=== PATIENT | female | born 1955 | race Caucasian/White ===

== ENCOUNTER → 2016-04-16 | Outpatient (REF) | payer OTHER | END | disposition home or self-care (01) | LOC: M LAB REF 12:24 | PROVIDERS: ATTEND Family Medicine | DX: M05.40 Rheumatoid myopathy with rheumatoid arthritis of unspecified site (principal) ==

== ENCOUNTER → 2016-06-20 | Outpatient (REF) | payer OTHER ==
[~2016-06-20] MED LIST: ASPI81TA85 PO; CETI10TA PO; CIPR500T89 PO; EPIP0.3I2; FISH1000 PO; FLAG500T PO; GLUC1CAP10 PO; HYDR200T3; HYDR25OIN; IBUP80TA; MULT1TAB8 PO; PENC1CR; Tumeric
== END ==
LOC: M LAB REF 11:51
PROVIDERS: ATTEND Physician Assistant
DX: R30.0 Dysuria (principal)

== ENCOUNTER 2016-06-21 19:25 | Emergency (ER) | payer OTHER ==
[~2016-06-21] VITALS: Ht 160 cm; Wt 93.0 kg
[2016-06-21] MEDS ORDERED: HYDR200T3 (19:45)
[2016-06-21] MEDS ORDERED: ASPI81TA85 PO (19:45)
[2016-06-21] MEDS ORDERED: EPIP0.3I2 (19:45)
[2016-06-21] MEDS ORDERED: IBUP80TA (19:45)
[2016-06-21] MEDS ORDERED: HYDR25OIN (19:45)
[2016-06-21] MEDS ORDERED: PENC1CR (19:45)
[2016-06-21] MEDS ORDERED: MULT1TAB8 PO (19:49)
[2016-06-21] MEDS ORDERED: CETI10TA PO (19:49)
[2016-06-21] MEDS ORDERED: GLUC1CAP10 PO (19:49)
[2016-06-21] MEDS ORDERED: FISH1000 PO (19:49)
[2016-06-21] MEDS ORDERED: Tumeric (19:53)
[2016-06-21] MEDS ORDERED: METAL LOCK LOOP XX ONE (20:17)
[2016-06-21 23:02] LABS: BASO % 0.4 % (0.0-1.0); EOS # 0.2 K/mm3 (0.0-0.50); EOS % 2.1 % (0.0-3.0); LARGE UNSTAINED CELL # 0.2 K/mm3 (0.0-0.4); LARGE UNSTAINED CELL % 1.9 % (0.0-4.0); LYMPH # 2.1 K/mm3 (1.5-4.5); LYMPH % 21.1 % (24.0-44.0); MEAN CORPUSCULAR HEMOGLOBIN 31.6 pg (27.0-33.0); MEAN CORPUSCULAR HGB CONC 34.2 g/dl (32.0-36.5); MEAN CORPUSCULAR VOLUME 92.4 fl (80.0-96.0); MONO # 0.4 K/mm3 (0.0-0.8); MONO % 4.4 % (0.0-5.0); NEUTROPHILS # 6.3 K/mm3 (1.8-7.7); NEUTROPHILS % 70.1 % (36.0-66.0); PLATELET COUNT, AUTOMATED 173 k/mm3 (150-450); RED CELL DISTRIBUTION WIDTH 12.6 % (11.5-14.5)
[2016-06-21 23:13] LABS: ALBUMIN 3.7 GM/DL (3.2-5.2); ALBUMIN/GLOBULIN RATIO 1.03 (1.00-1.93); ALKALINE PHOSPHATASE 87 U/L (45-117); ALT/SGPT 29 U/L (12-78); ANION GAP 6 MEQ/L (8-16); AST/SGOT 15 U/L (15-37); BILIRUBIN,TOTAL 0.4 MG/DL (0.2-1.0); BLOOD UREA NITROGEN 15 MG/DL (7-18); CALCIUM LEVEL 8.7 MG/DL (8.5-10.1); CARBON DIOXIDE LEVEL 34 MEQ/L (21-32); CHLORIDE LEVEL 104 MEQ/L (98-107); GLOMERULAR FILTRATION RATE > 60.0 (>51); GLUCOSE, FASTING 110 MG/DL (70-105); SODIUM LEVEL 144 MEQ/L (136-145); TOTAL PROTEIN 7.3 GM/DL (6.4-8.2)
[2016-06-21] MEDS ORDERED: ISOVUE-370 76% 100ML VIAL (Q9967) As Ordered ONE (23:53)
--- NOTE | 2016-06-22 00:10 | REPUSA ---
CLINICAL HISTORY: Pain. TECHNIQUE: Realtime sonographic images were obtained in multiple projections. COMMENTS: Uterus measures 6.2 (CC) x 3.3 (AP) x 5.0 (Transverse) cm with endometrial thickness of 5.2 mm. Mult iple exophytic fibroids noted, largest on right posterior and inferior aspect measuring 5.7 x 3.2 x 6 .2 cm. Endometrial fibroid measures 1.6 x 1.6 x 1.9 cm. Ovaries are not visualized. IMPRESSION: 1. Multiple exophytic fibroids noted, largest on right posterior and inferior aspect measuring 5.7 x 3.2 x 6.2 cm. 2. Endometrial fibroid measures 1.6 x 1.6 x 1.9 cm. Thank you for your kind referral of this patient. We appreciate the opportunity to participate in th is patient's care.
--- NOTE | 2016-06-22 01:50 | REPUSA ---
CLINICAL HISTORY: Abdominal pain. TECHNIQUE: Multiple axial, sagittal and coronal CT images were obtained through the abdomen and pelvi s after administration of intravenous contrast material. COMMENTS: The liver is of uniform attenuation without mass or defect. There is no intra or extrahepatic biliary ductal dilatation. The spleen is normal. The gallbladder contains multiple stones. The pancreas is o f normal contour and attenuation characteristics. There is no evidence of adrenal mass. Both kidneys demonstrate prompt and equal nephrograms. The kidneys are normal in size, shape and conf iguration. There is no evidence of renal or ureteral mass. No renal or ureteral calculi are identifie d. There is no hydroureter or hydronephrosis. No evidence for appendicitis. Scattred sigmoid divertculosis is seen. Adjacent inflammatory strand ing is seen compatible with acute diverticulitis. No evidence for small or large bowel obstruction. There is no evidence of abdominal ascites or lymphadenopathy. There is no evidence of intrinsic or extrinsic bladder mass. There is no pelvic ascites or lymphadeno darell.i Fibroid uterus is seen. Images of the lung bases show no evidence of pleural or parenchymal mass. There are no pleural effusi ons. The bony structures are free of lytic or blastic lesions. Multilevel degenerative changes are seen in volving the thoracolumbar spine. Scattered calcifications are seen involving the aorta and major bran ches compatible with atherosclerosis. IMPRESSION: Acute sigmoid diverticulitis. Gallstones. Fibroid uterus. Thank you for your kind referral of this patient.
[2016-06-22] MEDS ORDERED: CIPR500T89 PO (02:00)
[2016-06-22] MEDS ORDERED: FLAG500T PO ×2 (02:01→02:02)
[2016-06-22] MEDS: CIPROFLOXACIN 500 MG TAB PO ONE (02:02)
[2016-06-22] MEDS: metroNIDAZOLE (FLAGYL) 500 MG TAB PO ONE (02:15)
[2016-06-22 02:27] VITALS: BP 127/83
[2016-06-25 09:39] LABS: CA 125 7.6 U/ML (<30.2)
== END 2016-06-22 02:29 | disposition home or self-care (01) ==
LOC: M ED 20:48
DX: K57.92 Diverticulitis of intestine, part unspecified, without perforation or abscess without bleeding (principal); D25.9 Leiomyoma of uterus, unspecified
CPT/HCPCS: 74177; 76856; 80053; 83690; 85025; 86304; 99283; Q9967

== ENCOUNTER → 2016-07-12 | Outpatient (CLI) | payer OTHER | LOC: M WUC 10:14 | PROVIDERS: ATTEND Allergy & Immunology | DX: J30.89 Other allergic rhinitis (principal); J30.1 Allergic rhinitis due to pollen; H10.45 Other chronic allergic conjunctivitis; R05 Cough; J30.81 Allergic rhinitis due to animal (cat) (dog) hair and dander; J30.2 Other seasonal allergic rhinitis ==

== ENCOUNTER → 2016-10-17 | Outpatient (REF) | payer OTHER ==
[~2016-10-17] MED LIST changes: +CIPR-249 PO; -CIPR500T89 PO
== END ==
LOC: M LAB REF 13:14
PROVIDERS: ATTEND Family Medicine
DX: Z51.81 Encounter for therapeutic drug level monitoring (principal); Z79.899 Other long term (current) drug therapy

== ENCOUNTER → 2016-10-31 | Outpatient (CLI) | payer OTHER ==
[2016-10-31 16:55] LABS: BASO % 0.9 % (0.0-1.0); EOS # 0.2 K/mm3 (0.0-0.50); EOS % 3.6 % (0.0-3.0); LYMPH # 1.9 K/mm3 (1.5-4.5); LYMPH % 32.6 % (24.0-44.0); MEAN CORPUSCULAR HEMOGLOBIN 31.7 pg (27.0-33.0); MEAN CORPUSCULAR HGB CONC 34.6 g/dl (32.0-36.5); MEAN CORPUSCULAR VOLUME 91.9 fl (80.0-96.0); MONO # 0.3 K/mm3 (0.0-0.8); NEUTROPHILS # 3.1 K/mm3 (1.8-7.7); RED CELL DISTRIBUTION WIDTH 12.8 % (11.5-14.5); WHITE BLOOD COUNT 5.4 K/mm3 (4.0-10.0)
== END ==
LOC: M WUC 14:09
PROVIDERS: ATTEND Internal Medicine Rheumatology
DX: Z51.81 Encounter for therapeutic drug level monitoring (principal); Z79.899 Other long term (current) drug therapy

== ENCOUNTER → 2017-04-23 | Outpatient (REF) | payer OTHER ==
[2017-04-24 14:31] LABS: C REACTIVE PROTEIN QUANTITATIV < 0.30 MG/DL (0.00-0.30)
== END ==
LOC: M LAB REF 13:30
DX: M06.09 Rheumatoid arthritis without rheumatoid factor, multiple sites (principal)

== ENCOUNTER → 2018-10-13 | Outpatient (CLI) | payer OTHER ==
[2018-10-17 10:56] LABS: ALPHA 1 ANTITRYPSIN 114 mg/dL (90-200); D001-IgE D pteronyssinus 0.14 kU/L (Class 0/I); E001-IgE Cat Epith/Dander < 0.10 kU/L (Class 0); E003-IGE HORSE EPITHELIA/DAND <0.10 kU/L (Class 0); E004-IGE COW DANDER <0.10 kU/L (Class 0); E005-IgE Dog Dander < 0.10 kU/L (Class 0); F002-IgE Milk < 0.10 kU/L (Class 0); F004-IgE Wheat < 0.10 kU/L (Class 0); F013-IgE Peanut < 0.10 kU/L (Class 0); F014-IgE Soybean < 0.10 kU/L (Class 0); F026-IgE Pork < 0.10 kU/L (Class 0); F027-IgE Beef < 0.10 kU/L (Class 0); F245-IgE Egg, Whole < 0.10 kU/L (Class 0); FX02-IgE Food Mix (Sea Foods) Positive (.); G002-IgE Bermuda Grass < 0.10 kU/L (Class 0); G008-IgE Kentucky Bluegrass < 0.10 kU/L (Class 0); M001-IgE Penicillium chrysogen < 0.10 kU/L (Class 0); M002 IgE Cladosporium herbaru < 0.10 kU/L (Class 0); M003 IgE Aspergillus fumigatu < 0.10 kU/L (Class 0); M006-IgE Alternaria alternata < 0.10 kU/L (Class 0); T001-IgE Maple/Box Elder < 0.10 kU/L (Class 0); T003-IgE Common Silver Birch < 0.10 kU/L (Class 0); T006-IgE Cedar, Mountain < 0.10 kU/L (Class 0); T007-IgE Oak, White 0.12 kU/L (Class 0/I); T008-IgE Elm, American < 0.10 kU/L (Class 0); T015-IgE Ash, White < 0.10 kU/L (Class 0); T041-IgE Hickory, White < 0.10 kU/L (Class 0); T070-IgE White Mulberry < 0.10 kU/L (Class 0); W001-IgE Ragweed, Short < 0.10 kU/L (Class 0); W009-IgE Plantain, English < 0.10 kU/L (Class 0); W014-IgE Pigweed, Rough < 0.10 kU/L (Class 0); W018-IgE Sheep Sorrel < 0.10 kU/L (Class 0)
== END ==
LOC: M WUC 09:18
PROVIDERS: ATTEND Nurse Practitioner Family
DX: J30.1 Allergic rhinitis due to pollen (principal); J30.81 Allergic rhinitis due to animal (cat) (dog) hair and dander; J30.89 Other allergic rhinitis

== ENCOUNTER → 2019-03-12 | Outpatient (REF) | payer OTHER ==
[2019-03-12 13:22] LABS: PERCENT SATURATION 31.2 % (13.2-45.0)
== END ==
LOC: M LAB REF 12:26
PROVIDERS: ATTEND Family Medicine
DX: D64.9 Anemia, unspecified (principal)

== ENCOUNTER → 2020-08-01 | Outpatient (CLI) | payer OTHER ==
[~2020-08-01] MED LIST changes: -ASPI81TA85 PO; +ASPI81TA86 PO
[2020-08-01 12:37] LABS: ALT/SGPT 21 U/L (12-78); C REACTIVE PROTEIN QUANTITATIV < 0.30 MG/DL (0.00-0.30)
== END ==
LOC: M WUC 10:06
PROVIDERS: ATTEND Physician Assistant
DX: Z79.899 Other long term (current) drug therapy (principal)

== ENCOUNTER → 2020-09-12 | Outpatient (CLI) | payer OTHER | LOC: M WUC 09:46 | PROVIDERS: ATTEND Nurse Practitioner Family | DX: J30.1 Allergic rhinitis due to pollen (principal); J30.81 Allergic rhinitis due to animal (cat) (dog) hair and dander; J30.89 Other allergic rhinitis ==

== ENCOUNTER → 2021-02-12 | Outpatient (CLI) | payer OTHER ==
[~2021-02-12] MED LIST changes: +B-122500 PO; +C-251TAB PO; +ECOT81TA5 PO; -HYDR200T3; +HYDR200T3 PO; +NOXI1TAB PO
== END ==
LOC: M LABSMTC 10:34
PROVIDERS: ATTEND Anesthesiology
DX: Z01.812 Encounter for preprocedural laboratory examination (principal); Z20.822 Contact with and (suspected) exposure to COVID-19

== ENCOUNTER 2021-02-16 07:35 | Day surgery (SDC) | payer OTHER ==
[~2021-02-16] VITALS: Ht 160 cm; Wt 96.5 kg
[~2021-02-16 07:35] MED LIST changes: +BUPIVACAINE/EPIN 0.25% 30 ML VIAL As Ordered ONE; +LIDOCAINE 1% MDV 20ML VIAL SQ PRN; +LR 1,000 ML IV ONE; +LevoFLOXacin IV 500 MG in IV 1 EA IV ONE
--- OUTSIDE RECORDS SUMMARY | 2021-02-16 07:40 | CCD | Continuity of Care Document ---
Author Author Patriica TEAGUE M.D. Organization Unknown Address [address] [facility] [address] [place] [address] Phone [phone] Care Team Providers Care Air Brakes Inspector Name Role Phone John Teague MD AUTM [phone] acacia Smith MD AUTM [phone] Amberly Cruz AUTM [phone] Cuco Perdomo MD AUTM Unavailable Problems Active Problems Provider Date Rheumatoid arthritis Onset: 08/12/2012 Atopic dermatitis Onset: 11/08/2010 Carpal tunnel syndrome Onset: 02/28/2010 Eczema Onset: 01/11/2010 Palpitations Onset: 02/28/2008 Dyslipidemia Onset: 02/28/2008 Urinary incontinence Onset: 02/28/2008 Drug-induced hyperglycemia Onset: 2007 Osteoarthritis Onset: Social History Type Date Description Comments Sex Unknown ETOH Use Rarely consumes alcohol Tobacco Use Start: Unknown Patient has never smoked Allergies and adverse reactions Active Allergies Criticality Reaction | Severity Comments Date Doxycycline Unable to assess criticality rash 09/22/2014 Sulfa Unable to assess criticality rash 09/22/2014 Erythromycin Unable to assess criticality rash 09/22/2014 Shrimp Unable to assess criticality Per Allergy Testing 03/28/2015 Medications Active Medications SIG Qnty Indications Ordering Provide r Date Colace 100mg Capsules 1 by mouth twice a day (OTC per ortho) 30caps John Teague M.D. 019 Transderm-Scop (1.5 MG) 1mg/3Days Patches 72HR apply 1 behind ear every 3rd day as needed 4units John Teague M.D. 07/09/2016 Allergy Injections 1 Inj Each Arm Q 3 WEEKs Hawk Teague M.D. 03/28/2015 Vitamin D Capsules 1 by mouth every day John Teague M.D. 03/28/2015 Vitamin B Complex Tablets 1 by mouth every day John Teague M.D. 03/28/2015 Tumeric 1 po qd John Teague M.D. 03/08 Glucosamine Chondroitin 1500 Complex Max imum Strength 1500Com Capsules 1 by mouth twice a day John Teague M.D. 09/23/2014 Valtrex 1gm Tablets 1 by mouth three times a day x 7 days 21tabs John Teague M.D. 09/23/2014 Denavir 1% Cream apply every 2 hours while awake for 5 days 5g John Teague M.D. 09/23/2014 Aspirin 81mg Tablets 1 by mouth every day John Teague M.D. 09/22/2014 Zyrtec Allergy 10mg Tablets 1 by mouth every day John Teague M.D. 09/22/2014 Fish Oil 1000mg Capsules 3 by mouth every day John Teague M.D. 09/22/2014 Hydroxychloroquine Sulfate 200mg T ablets 2 by mouth qd Unknown Administration Of Flu Vaccine Inj ection Unknown Immunizations CPT Code Status Date Vaccine Lot # U-Flu Given 01/12/2020 Influenza,Unspecified 92536 Given 12/23/2018 Influenza Virus Vaccine, Quadrivalent ([id number]), Derived From Cell [id number] Given 11/16/2018 Boostrix Tetanus Diphtheria Pertussis (Over Age 65) U-Flu Given 12/20/2017 Influenza,Unspecified 61324 Given 03/28/2015 Zoster Vaccine [id number] Given 03/09/2014 Influenza Virus Vaccine 95056 Given 02/18/2012 Adacel- Tetanus Diphtheria P ertussis [id number] Refused 02/17/2013 Influenza Virus Vaccine Vital Signs Date Vital Result Comment 12/15/2020 9:27am BP Systolic 116 mmHg BP Diastolic 68 mmHg Heart Rate 74 /min Height 64 inches 5'4" Weight 215.00 lb O2 % BldC Oximetry 97 % RM Air BMI (Body Mass Index) 36.9 kg/m2 09/08/2020 10:27am BP Systolic 118 mmHg BP Diastolic 58 mmHg Heart Rate 72 /min Height 64 inches 5'4" Weight 214.00 lb BMI (Body Mass Index) 36.7 kg/m2 Results Test Acquired Date Facility Test Result H/L Range Note Comprehensive Chem Profile 12/13/2020 [facility] Cell Stripper Final: [place] [address] [phone] Glucose 101 mg/dL High 74 - 99 1 BUN 17 mg/dL 7 - 18 Creatinine 0.9 mg/dL 0.6 - 1.3 Sodium 142 mEq/L 136 - 145 Potassium 4.2 mEq/L 3.5 - 5.1 Chloride 104 mEq/L 98 - 107 Carbon Dioxide 31 mEq/L 21 - 32 Calcium 9.1 mg/dL 8.5 - 10.1 Alk. Phosphatase 82 mg/dL 46 - 116 Total Bilirubin 0.4 mg/dL 0.2 - 1.0 Ast (Sgot) 22 U/L 15 - 37 Alt (SGPT) 36 U/L 12 - 78 Albumin 3.5 g/dL 3.4 - 5.0 Total Protein 6.8 g/dL 6.4 - 8.2 A/G Ratio 1.06 CALC 1.00 - 1.90 GFR >= 60 mL/min >60 GFR >= 60 mL/min >60 2 A1c 12/13/2020 [facility] Cell Stripper Final: [place] [address] [phone] Hba1c 6.6 % High <5.7 3 Est Avg Glucose 143 mg/dL High 60 - 110 Microalbumin/Creatinine Urine 12/13/2020 [facility] Cell Stripper Final: [place] [address] [phone] Microalbumin Urine 5.8 mg/L 1.3 - 20.0 Urine Creatinine 130.8 mg/dL High 30.0 - 125.0 Microalb/Creat Ratio 4.4 ug/mg 0.0 - 30.0 Complete Blood Count 09/06/2020 [facility] Cell Stripper Final: [place] [address] [phone] WBC 4.5 x10*3/UL 4.1 - 10.9 RBC 4.88 x10*6/UL 4.20 - 6.30 Hemoglobin 14.6 g/dL 12.0 - 18.0 Hematocrit 43.4 % 37.0 - 51.0 MCV 88.9 fL 80.0 - 97.0 MCH 29.9 pg 26.0 - 32.0 MCHC 33.6 g/dL 31.0 - 38.0 RDW 13.3 % 11.6 - 13.7 PLT 160 x10*3/UL 140 - 440 MPV 8.9 FL 7.8 - 11.0 Lymph % 41.8 % 10.0 - 58.5 Mid % 9.0 % 1.7 - 9.3 Neut % 49.2 % 37.0 - 92.0 Lymph # 1.9 x10*3/UL 0.6 - 4.1 Mid # 0.4 x10*3/UL 0.1 - 0.6 Neut # 2.2 x10*3/UL 2.0 - 7.8 A1c 09/06/2020 [facility] , Cell Stripper Final: Dr Yovanny Shaver [place], [place] [id number] [phone] Hba1c 6.9 % High <5.7 4 Est Avg Glucose 151 mg/dL High 60 - 110 Comprehensive Chem Profile 09/06/2020 [facility] Stripper Final: Dr Yovanny Shaver [place], [place] [id number] [phone] Glucose 129 mg/dL High 74 - 99 5 BUN 18 mg/dL 7 - 18 Creatinine 0.8 mg/dL 0.6 - 1.3 Sodium 143 mEq/L 136 - 145 Potassium 4.1 mEq/L 3.5 - 5.1 Chloride 104 mEq/L 98 - 107 Carbon Dioxide 30 mEq/L 21 - 32 Calcium 8.9 mg/dL 8.5 - 10.1 Alk. Phosphatase 104 mg/dL 46 - 116 Total Bilirubin 0.5 mg/dL 0.2 - 1.0 Ast (Sgot) 24 U/L 15 - 37 Alt (SGPT) 38 U/L 12 - 78 Albumin 3.7 g/dL 3.4 - 5.0 Total Protein 7.0 g/dL 6.4 - 8.2 A/G Ratio 1.12 CALC 1.00 - 1.90 GFR >= 60 mL/min >60 GFR >= 60 mL/min >60 6 Lipid Profile 09/06/2020 [facility] Cell Stripper Final: [place] [address] [phone] Cholesterol 196 mg/dL 131 - 200 Triglycerides 108 mg/dL 30 - 150 HDL Cholesterol 56 mg/dL 35 - 60 LDL (Calculated) 118 CALC 50 - 159 1 100-125 mg/dL PRE-DIABET ES/FASTING >126 mg/dL DIABETES/FASTING 2 CHRONIC KIDNEY DISEASE STAGI NG PER NKF STAGE I & II GFR >= 60 NORMAL TO MILDLY DECREASED STAGE III GFR 30-59 MODERATELY DECREASED STAGE IV GFR 15-29 SEVERELY DECREASED STAGE V GFR <15 VERY LITTLE GFR LEFT ESRD GFR <15 ON INDUSTRIAL SPRAYPAINTER 3 Lab Result Notes: Pre-Diabetes 5.7 - 6.4 % Diabetes = or > 6.5% 4 Lab Result Notes: Pre-Diabetes 5.7 - 6.4 % Diabetes = or > 6.5% 5 100-125 mg/dL PRE-DIABET ES/FASTING >126 mg/dL DIABETES/FASTING 6 CHRONIC KIDNEY DISEASE STAGI NG PER NKF STAGE I & II GFR >= 60 NORMAL TO MILDLY DECREASED STAGE III GFR 30-59 MODERATELY DECREASED STAGE IV GFR 15-29 SEVERELY DECREASED STAGE V GFR <15 VERY LITTLE GFR LEFT ESRD GFR <15 ON INDUSTRIAL SPRAYPAINTER Procedures Date Code Description Status 12/15/2020 53740 Office/Outpatient Established Mo d MDM 30-39 Min Completed 11/03/2020 [id number] Mammogram Completed 09/08/2020 15977 Est Prevent Med (40-64Yrs) Compl eted 10/27/2019 [id number] Bone Mineral Density Test Comple [facility] 10/27/2019 [id number] Mammogram Completed 10/15/2018 [id number] Mammogram Completed 10/15/2017 [id number] Mammogram Completed 03/10/2017 [id number] Diabetic Retinal Eye Exam Comple [facility] 10/03/2016 [id number] Mammogram Completed 03/06/2016 [id number] Diabetic Retinal Eye Exam Comple [facility] 11/07/2015 [id number] Bone Mineral Density Test Comple [facility] 10/03/2015 [id number] Mammogram Completed 03/06/2015 [id number] Diabetic Retinal Eye Exam Comple [facility] 09/27/2014 [id number] Mammogram Completed Medical Devices Description No Information Available Encounters Type Date Location Provider Dx Diagnosis [facility] E78.01 Familial hypercholesterolemia M06.09 Rheumatoid arthritis w/o rhe umatoid factor, multiple sites E11.9 Type 2 diabetes mellitus wit hout complications J30.9 Allergic rhinitis, unspecifi ed B00.89 Other herpesviral infection Z91.030 Bee allergy status M19.90 Unspecified osteoarthritis, unspecified site Office Visit 09/08/2020 [facility] Z[facility]00 Encntr for general adult medical exam w/ o abnormal findings E78.01 Familial hypercholesterolemi a M06.09 Rheumatoid arthritis w/o rhe umatoid factor, multiple sites E11.9 Type 2 diabetes mellitus wit hout complications R21 Rash and other nonspecific s kin eruption J30.9 Allergic rhinitis, unspecifi ed B00.89 Other herpesviral infection Z91.030 Bee allergy status Z13.89 Encounter for screening for other disorder Assessments Date Code Description Provider 12/15/2020 E78.01 Familial hypercholesterolemia Ziyad Teague M.D. 12/15/2020 M06.09 Rheumatoid arthritis without rhe umatoid factor, multiple sit John Teague M.D. 12/15/2020 E11.9 Type 2 diabetes mellitus without complications John Teague M.D. 12/15/2020 J30.9 Allergic rhinitis, unspecified Piper Teague M.D. 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 12/15/2020 Z91.030 Bee allergy status John yates M.D. 12/15/2020 M19.90 Unspecified osteoarthritis, unsp ecified site John Teague M.D. 12/13/2020 E11.9 Type 2 diabetes mellitus without complications John Teague M.D. 12/13/2020 E11.9 Type 2 diabetes mellitus without complications Lab Schedule 12/13/2020 M19.90 Unspecified osteoarthritis, unsp ecified site John Teague M.D. 09/08/2020 Z00.00 Encounter for general adult medi ramon examination without abno John Teague M.D. 09/08/2020 E78.01 Familial hypercholesterolemia Ziyad acosta Elijah Teague M.D. 09/08/2020 M06.09 Rheumatoid arthritis without rhe umatoid factor, multiple sit John Teague M.D. 09/08/2020 E11.9 Type 2 diabetes mellitus without complications John Teague M.D. 09/08/2020 R21 Rash and other nonspecific skin eruption John Teague M.D. 09/08/2020 J30.9 Allergic rhinitis, unspecified Piper Teague M.D. 09/08/2020 B00.89 Other herpesviral infection Bree Teague M.D. 09/08/2020 Z91.030 Bee allergy status John yates M.D. 09/08/2020 Z13.89 Encounter for screening for othe r disorder John Teague M.D. 09/06/2020 E78.01 Familial hypercholesterolemia Ziyad dave Teague M.D. 09/06/2020 E78.01 Familial hypercholesterolemia La b Schedule 09/06/2020 R73.01 Impaired fasting glucose John Teague M.D. 09/06/2020 R73.01 Impaired fasting glucose Lab [facility] Plan of Treatment Future Appointment(s):* 06/13/2021 8:10 am - Lab Schedule at [facility] * 06/15/2021 9:30 am - John Teague M.D. at [facility] 12/15/2020 - John Teague M.D.* E78.01 Familial hypercholesterolemia * M06.09 Rheumatoid arthritis w/o rheumatoid factor, multiple sites * E11.9 Type 2 diabetes mellitus without complications * J30.9 Allergic rhinitis, unspecified * B00.89 Other herpesviral infection * Z91.030 Bee allergy status * M19.90 Unspecified osteoarthritis, unspecified site * * Comments:* 1. Familial hypercholesterolemia: She has done generally well when checked in 09/2020. She has made recent diet changes and will continue to follow positive lifestyle changes. We will check lipids prior to her next visit. 2. Rheumatoid arthritis: Seeing Amberly at [facility]. Her LFTs were elevated in July and repeat was normalized. She is on Plaquenil and does have follow up with them in February 2021.3. Type 2 diabetes mellitus: Controlled HgbA1c at 6.6, which is an improvement from prior at 6.9 when checked last. Her annual KAUSHIK is negative. She has made diet changes. She has no numbness or tingling in her feet. She is encouraged to continue to follow positive lifestyle changes.4. Allergic rhinitis: She has been doing well with allergy shots every 3 weeks and Zyrtec. She is going to see Valeria at [facility] after this visit today.5. Herpesviral infection: Good results with the use of Denavir and Valtrex as needed for cold sores. We will continue to monitor.6. Bee allergy status: She had good results with prednisone for 3 days after a recent episode. She did not use her EpiPen as there was no issue with trouble breathing. We will monitor.7. Osteoarthritis: Doing generally well on current regimen. She is going to see Dr. Flora rodríguezs S.O.S.Ongoing cares: I am going to see her again in 6 months with CBC, CMP, l ipids, HgbA1c and TSH. If she has new problems or issues sooner she will let us know. Functional Status Description No Information Available Mental Status Description No Information Available Referrals Description No Information Available
--- OUTSIDE RECORDS SUMMARY | 2021-02-16 07:40 | CCD | Continuity of Care Document ---
Author Author Lab Schedule, Patricia Saldaña Organization Unknown Address [address] [place] [address] Phone Unavailable Care Team Providers Care Tool Shaper Setup Operator Name Role Phone John Teague MD AUTM [phone] acacia Smith MD AUTM [phone] Amberly Cruz AUTM [phone] Cuco Perdomo MD AUTM Unavailable Problems Active Problems Provider Date Rheumatoid arthritis Onset: 08/12/2012 Atopic dermatitis Onset: 11/08/2010 Carpal tunnel syndrome Onset: 02/28/2010 Eczema Onset: 01/11/2010 Palpitations Onset: 02/28/2008 Dyslipidemia Onset: 02/28/2008 Urinary incontinence Onset: 02/28/2008 Drug-induced hyperglycemia Onset: 2007 Osteoarthritis Onset: Social History Type Date Description Comments Sex Unknown ETOH Use Rarely consumes alcohol Tobacco Use Start: Unknown Patient has never smoked Allergies, Adverse Reactions, Alerts Active Allergies Criticality Reaction | Severity Comments [...] Vaccine Lot # U-Flu Given 01/12/2020 Influenza,Unspecified 73188 Given 12/23/2018 Influenza Virus Vaccine, Quadrivalent (Cciiv4), Derived From Cell 03780 Given 11/16/2018 Boostrix Tetanus Diphtheria Pertussis (Over Age 65) U-Flu Given 12/20/2017 Influenza,Unspecified 33775 Given 03/28/2015 Zoster Vaccine [id number] 78006 Given 03/09/2014 Influenza Virus Vaccine 05367 Given 02/18/2012 Adacel- Tetanus Diphtheria P ertussis (Age64 & Under) 49431 Refused 02/17/2013 Influenza Virus Vaccine Vital Signs [...] H/L Range Note Comprehensive Chem Profile 12/13/2020 [facility] Graduate Civil Engineer: [place] [address] [phone] Glucose 101 mg/dL High 74 - 99 [...] >= 60 mL/min >60 2 A1c 12/13/2020 [facility] Graduate Civil Engineer: [place] [address] [phone] Hba1c 6.6 % High <5.7 3 Est Avg Glucose 143 mg/dL High 60 - 110 Microalbumin/Creatinine Urine 12/13/2020 [facility] Graduate Civil Engineer: [place]ov[place] [address] [phone] Microalbumin Urine 5.8 mg/L 1.3 - 20.0 Urine Creatinine 130.8 mg/dL High 30.0 - 125.0 Microalb/Creat Ratio 4.4 ug/mg 0.0 - 30.0 Complete Blood Count 09/06/2020 [facility] Graduate Civil Engineer: [place] Yov[place] [address] [phone] WBC 4.5 x10*3/UL 4.1 - 10.9 RBC [...] 2.2 x10*3/UL 2.0 - 7.8 A1c 09/06/2020 [facility] , Graduate Civil Engineer: Dr Yovanny Shaver [place], [place] [address] [phone] Hba1c 6.9 % High <5.7 4 Est Avg Glucose 151 mg/dL High 60 - 110 Comprehensive Chem Profile 09/06/2020 [facility] Graduate Civil Engineer: Dr Yovanny De Le[place], [place] [address] [phone] Glucose 129 mg/dL High 74 - 99 [...] Lipid Profile 09/06/2020 [facility] Graduate Civil Engineer: [place] [address] [phone] Cholesterol 196 mg/dL 131 - 200 Triglycerides [...] LITTLE GFR LEFT ESRD GFR <15 ON PROJECT ASSISTANT 3 Lab Result Notes: Pre-Diabetes 5.7 - [...] LITTLE GFR LEFT ESRD GFR <15 ON PROJECT ASSISTANT Procedures Date Code Description Status 11/03/2020 [id number] Mammogram Completed 09/08/2020 21996 Est Prevent Med (40-64Yrs) Compl eted 10/27/2019 [id number] Bone Mineral Density Test Comple [facility] 10/27/2019 [id number] Mammogram Completed 10/15/2018 [id number] Mammogram Completed 10/15/2017 [id number] Mammogram Completed 03/10/2017 [id number] Diabetic Retinal Eye Exam Comple [facility] 10/03/2016 [id number] Mammogram Completed 03/06/2016 [id number] Diabetic Retinal Eye Exam Comple [facility] 11/07/2015 [id number] Bone Mineral Density Test Comple [facility] 10/03/2015 [id number] Mammogram Completed 03/06/2015 [id number] Diabetic Retinal Eye Exam Comple [facility] 09/27/2014 [id number] Mammogram Completed Medical Devices Description No Information Available Encounters Type Date Location Provider Dx Diagnosis Office Visit 09/08/2020 10:30a [facility] John Teague M.D. Z00.00 Encntr for general adult medical [...] mellitus without complications John Teague M.D. 12/15/2020 R21 Rash and other nonspecific skin eruption John Teague M.D. 12/15/2020 J30.9 Allergic rhinitis, unspecified Piper Teague M.D. 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 12/15/2020 Z91.030 Bee allergy status John yates M.D. 09/08/2020 Z00.00 Encounter for general adult medi ramon examination without abno John Teague M.D. 09/08/2020 E78.01 Familial hypercholesterolemia Ziyad Teague M.D. 09/08/2020 M06.09 Rheumatoid arthritis without [...] Teague M.D. 09/06/2020 E78.01 Familial hypercholesterolemia Ziyad Teague M.D. 09/06/2020 E78.01 Familial hypercholesterolemia La b Schedule 09/06/2020 R73.01 Impaired fasting glucose John Teague M.D. 09/06/2020 R73.01 Impaired fasting glucose Lab [facility] Plan of Treatment No Information Available Functional Status Description No Information Available Mental Status Description No Information Available Referrals Description No Information Available
--- OUTSIDE RECORDS SUMMARY | 2021-02-16 07:40 | CCD ---
Continuity of Care Document (CCD) Created on: 12/15/2020 Patricia Rico External Reference #: [id number] : 1955 Sex: Female Author Author Patricia TEAGUE M.D. Organization Unknown Address [address] [facility] [address] [place] [address] Phone [phone] Care Team Providers Care Supervisor Telephone Clerks Name Role Phone John Teague MD AUTM [phone] acacia Smith MD AUTM [phone] Amberly Cruz AUTM [phone] Cuco Perdomo MD AUTM Unavailable Problems Active [...] Vaccine Lot # U-Flu Given 01/12/2020 Influenza,Unspecified 75568 Given 12/23/2018 Influenza Virus Vaccine, Quadrivalent ([id number]), Derived From Cell [id number] Given 11/16/2018 Boostrix Tetanus Diphtheria Pertussis (Over Age 65) U-Flu Given 12/20/2017 Influenza,Unspecified 64117 Given 03/28/2015 Zoster Vaccine [id number] 05999 Given 03/09/2014 Influenza Virus Vaccine 58990 Given 02/18/2012 Adacel- Tetanus Diphtheria P ertussis (Age64 & Under) [id number] Refused 02/17/2013 Influenza Virus Vaccine Vital Signs [...] H/L Range Note Comprehensive Chem Profile 12/13/2020 [facility] Lay Out Former: [place] [address] [phone] Glucose 101 mg/dL High 74 - 99 [...] >= 60 mL/min >60 2 A1c 12/13/2020 [facility] Former: [place] [address] [phone] Hba1c 6.6 % High <5.7 3 Est Avg Glucose 143 mg/dL High 60 - 110 Microalbumin/Creatinine Urine 12/13/2020 [facility] Out Former: [place] [address] [phone] Microalbumin Urine 5.8 mg/L 1.3 - 20.0 Urine Creatinine 130.8 mg/dL High 30.0 - 125.0 Microalb/Creat Ratio 4.4 ug/mg 0.0 - 30.0 Complete Blood Count 09/06/2020 [facility] Lay Out Former: [place] [address] [phone] WBC 4.5 x10*3/UL 4.1 - 10.9 RBC [...] 2.2 x10*3/UL 2.0 - 7.8 A1c 09/06/2020 [facility] Lay Out Former: [place] [address] [phone] Hba1c 6.9 % High <5.7 4 Est Avg Glucose 151 mg/dL High 60 - 110 Comprehensive Chem Profile 09/06/2020 [facility] Former: [place] [address] [phone] Glucose 129 mg/dL High 74 - 99 [...] 60 mL/min >60 6 Lipid Profile 09/06/2020 [facility] Lay Out Former: Dr Yovanny Shaver [place], [place] [id number] [phone] Cholesterol 196 mg/dL 131 - 200 Triglycerides [...] LITTLE GFR LEFT ESRD GFR <15 ON ORACLE BPM DEVELOPER 3 Lab Result Notes: Pre-Diabetes 5.7 - [...] LITTLE GFR LEFT ESRD GFR <15 ON ORACLE BPM DEVELOPER Procedures Date Code Description Status 11/03/2020 39444745 Mammogram Completed 09/08/2020 96394 Est Prevent Med (40-64Yrs) Compl eted 10/27/2019 357113495 Bone Mineral Density Test [facility]ple [facility] 10/27/2019 [id number] Mammogram Completed 10/15/2018 [id number] Mammogram Completed 10/15/2017 [id number] Mammogram Completed 03/10/2017 241515498 Diabetic Retinal Eye Exam Comple [facility] 10/03/2016 [id number] Mammogram Completed 03/06/2016 984378102 Diabetic Retinal Eye Exam Comple [facility] 11/07/2015 [id number] Bone Mineral Density Test Comple [facility] 10/03/2015 [id number] Mammogram Completed 03/06/2015 [id number] Diabetic Retinal Eye Exam Comple [facility] 09/27/2014 [id number] Mammogram Completed Medical Devices Description No Information Available Encounters Type Date Location Provider Dx Diagnosis Office Visit 09/08/2020 10:30a [facility] John Teague M.D. Z00.00 Encntr [...] other disorder Assessments Date Code Description Provider 09/08/2020 Z00.00 Encounter for general adult medi ramon examination without abno John Teague M.D. 09/08/2020 E78.01 Familial hypercholesterolemia Ziyad Teague M.D. 09/08/2020 M06.09 Rheumatoid arthritis without rhe umatoid factor, multiple sit John Teague M.D. 09/08/2020 E11.9 Type 2 diabetes mellitus without complications John Teague M.D. 09/08/2020 R21 Rash and other nonspecific skin eruption John Teague M.D. 09/08/2020 J30.9 Allergic rhinitis, unspecified J nayeli Teague M.D. 09/08/2020 B00.89 Other herpesviral infection Bree Teague M.D. 09/08/2020 Z91.030 Bee allergy status John yates M.D. 09/08/2020 Z13.89 Encounter for screening for othe r disorder John Teague M.D. 09/06/2020 E78.01 Familial hypercholesterolemia Ziyad Teague M.D. 09/06/2020 E78.01 Familial hypercholesterolemia La b Schedule 09/06/2020 R73.01 Impaired fasting glucose John Teague M.D. 09/06/2020 R73.01 Impaired fasting glucose Lab [facility] Plan of Treatment No Information Available Functional Status Description No Information Available Mental Status Description No Information Available Referrals Description No Information Available
--- OUTSIDE RECORDS SUMMARY | 2021-02-16 07:40 | CCD ---
Continuity of Care Document (CCD) Created on: 01/22/2021 Patricia Rico External Reference #: [id number] : 1955 Sex: Female Author Author Patricia LOVE MD Organization Unknown Address [address] [facility] [address] [place] [address] Phone [phone] Care Team Providers Care Sand Temperer Name Role Phone John Teague M.D. AUTM [phone] Problems Description No Information Available Social History Type Date Description Comments Sex Unknown ETOH Use Rarely Tobacco Use Start: Unknown Denies Smoking Recreational Drug Use Denies Drug Use Allergies and adverse reactions Active Allergies Criticality Reaction | Severity Comments Date Doxycycline Unable to assess criticality Rash 01/22/2021 Sulfa Unable to assess criticality Rash 01/22/2021 Trimox Unable to assess criticality Rash 01/22/2021 Suprax Unable to assess criticality Rash 01/22/2021 Bee Sting Unable to assess criticality Swelling of eyelid, Tongu e swelling 01/22/2021 Shellfish-Derived Products Unable to assess criticality rash 01/22/2021 Medications Active Medications SIG Qnty Indications Ordering Provide r Date Vitamin D3 125mcg (5000 Ut) Capsul es 1 tab by mouth every day Unknown Ibuprofen 200 200mg Tablets p rn Unknown Naproxen 500mg Tablets DR 1 by mouth twice a day Unknown Lactaid 3000Unit Tablets 1 tab by mouth every day Unknown Vitamin C 500mg Capsules 1 tab by mouth twice a day Unknown Biotin 5000 5mg Capsules 2 po qd Unknown Aspirin [address] 1 by mouth every day Unknown Cetirizine HCL 10mg Chewtabs 1 tab by mouth every day Unknown Rasmussen Colon Health Capsules 1 tab by mouth every day Unknown Vitamin B12 1000mcg Tablets ER one tablet by mouth every day ( take after dinner). Unknown Hydroxychloroquine Sulfate 200mg T ablets 2 tabs po qd Unknown [place]-3 1400mg Capsules 2 tabs by mouth every day Unknown Glucosamine Chondroitin 1500 Complex 1500Com Capsules 2 tabs po qd Unknown QC Tumeric Complex 500mg Capsules 1 tab by mouth every day Unknown One-A-Day Vitacraves Womens Multi Chewtabs 1 tab by mouth every day Unknown Metamucil 0.52gm Capsules 5 by mouth twice a day Unknown Tobramycin 0.3% Solution Instill 1 2 Drops To Affected Eye Three Times A Day For 7 Days Unk nown Valacyclovir HCL 1gm Tablets use as directed John Teague M.D. Denavir 1% Cream Apply Every 2 Hours While Awake For 5 Days Unknown Immunizations Description No Information Available Vital Signs Date Vital Result Comment 01/22/2021 8:56am BP Systolic 117 mmHg BP Diastolic 79 mmHg Heart Rate 63 /min Height 63 inches 5'3" Weight 213.50 lb BMI (Body Mass Index) 37.8 kg/m2 [place] Body Weight 115 lb Weight 96.844 kg BSA (Body Surface Area) 1.99 m2 Results Description No Information Available Procedures Description No Information Available Medical Devices Description No Information Available Encounters Description No Information Available Assessments Description No Information Available Plan of Treatment No Information Available Functional Status Description No Information Available Mental Status Description No Information Available Referrals Description No Information Available
--- OUTSIDE RECORDS SUMMARY | 2021-02-16 07:40 | CCD | Continuity of Care Document ---
Author Author Lab Schedule, Patricia Saldaña Organization Unknown Address [address] [place] [address] Phone Unavailable Care Team Providers Care Cream Cheese Maker Name Role Phone John Teague MD AUTM [phone] acacia Smith MD AUTM [phone] Amberly Cruz AUTM [phone] Cuco Perdomo MD AUTM Unavailable Problems Active [...] times a day x 7 days 21tabs Jonh Teague M.D. 09/23/2014 Denavir 1% Cream apply [...] Vaccine Lot # U-Flu Given 01/12/2020 Influenza,Unspecified 80464 Given 12/23/2018 Influenza Virus Vaccine, Quadrivalent (Cciiv4), Derived From Cell 20097 Given 11/16/2018 Boostrix Tetanus Diphtheria Pertussis (Over Age 65) U-Flu Given 12/20/2017 Influenza,Unspecified 86350 Given 03/28/2015 Zoster Vaccine [id number] 30316 Given 03/09/2014 Influenza Virus Vaccine 71583 Given 02/18/2012 Adacel- Tetanus Diphtheria P ertussis [id number] Refused 02/17/2013 Influenza Virus Vaccine Vital Signs [...] H/L Range Note Comprehensive Chem Profile 12/13/2020 [facility] Development Analyst: [place] [address] [phone] Glucose 101 mg/dL High 74 - 99 [...] >= 60 mL/min >60 2 A1c 12/13/2020 [facility] , Development Analyst: [place] [address] [phone] Hba1c 6.6 % High <5.7 3 Est Avg Glucose 143 mg/dL High 60 - 110 Microalbumin/Creatinine Urine 12/13/2020 [facility], Development Analyst: [place] [address] [phone] Microalbumin Urine 5.8 mg/L 1.3 - 20.0 Urine Creatinine 130.8 mg/dL High 30.0 - 125.0 Microalb/Creat Ratio 4.4 ug/mg 0.0 - 30.0 Complete Blood Count 09/06/2020 [facility] Development Analyst: [place] [address] [phone] WBC 4.5 x10*3/UL 4.1 - 10.9 RBC [...] 2.2 x10*3/UL 2.0 - 7.8 A1c 09/06/2020 [facility] , Development Analyst: [place] [address] [phone] Hba1c 6.9 % High <5.7 4 Est Avg Glucose 151 mg/dL High 60 - 110 Comprehensive Chem Profile 09/06/2020 [facility], Development Analyst: [place] [address] [phone] Glucose 129 mg/dL High 74 - 99 [...] Lipid Profile 09/06/2020 [facility] Development Analyst: [place] [address] [phone] Cholesterol 196 mg/dL 131 - 200 Triglycerides [...] LITTLE GFR LEFT ESRD GFR <15 ON PERSONNEL SPECIALIST 3 Lab Result Notes: Pre-Diabetes 5.7 - [...] LITTLE GFR LEFT ESRD GFR <15 ON PERSONNEL SPECIALIST Procedures Date Code Description Status 11/03/2020 [id number] Mammogram Completed 09/08/2020 20364 Est Prevent Med (40-64Yrs) Compl eted 10/27/2019 356651292 Bone Mineral Density Test [facility]ple [facility] 10/27/2019 [id number] Mammogram Completed 10/15/2018 87125424 Mammogram Completed 10/15/2017 [id number] Mammogram Completed 03/10/2017 204226938 Diabetic Retinal Eye Exam [facility] 10/03/2016 56196040 Mammogram Completed 03/06/2016 799016128 Diabetic Retinal Eye Exam [facility] 11/07/2015 506625997 Bone Mineral Density Test [facility] 10/03/2015 32810318 Mammogram Completed 03/06/2015 457604501 Diabetic Retinal Eye Exam [facility] 09/27/2014 [id number] Mammogram Completed Medical Devices Description No Information Available Encounters Type Date Location Provider Dx Diagnosis Office Visit 09/08/2020 10:30a [facility] John Teague M.D. Z00.00 Encntr [...] Teague M.D. 12/15/2020 J30.9 Allergic rhinitis, unspecified J nayeli Teague M.D. 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 12/15/2020 Z91.030 Bee allergy status John yates M.D. 12/15/2020 M19.90 Unspecified osteoarthritis, uns ecified site John Teague M.D. 12/13/2020 E11.9 [...] M.D. 09/06/2020 R73.01 Impaired fasting glucose Lab [facility] Plan of Treatment Future Appointment(s):* 06/13/2021 8:10 am - Lab Schedule at [facility] * 06/15/2021 9:30 am - John Teague M.D. at [facility] 12/15/2020 - John Teague M.D.* [...] am going to see her again in months with . If she has new problems or issues sooner she will let us know. Functional Status Description No Information Available Mental Status Description No Information Available Referrals Description No Information Available
--- OUTSIDE RECORDS SUMMARY | 2021-02-16 07:40 | CCD ---
Continuity of Care Document (CCD) Created on: 01/25/2021 Patricia Rico External Reference #: [id number] : 1955 Sex: Female Author Author Patricia PEREZ MD Organization Unknown Address [address] [facility] [address] [place] [address] Phone [phone] Care Team Providers Care Driver Guide Name Role Phone John Teague M.D. AUTM [phone] Problems Description No Information Available Social History [...] T ablets 2 tabs po qd Unknown [place]-3 1400mg Capsules 2 tabs by mouth every [...] Valacyclovir HCL 1gm Tablets use as directed oJhn Teague M.D. Denavir 1% Cream Apply Every 2 Hours While Awake For 5 Days Unknown Immunizations Description No Information Available Vital Signs Date Vital Result Comment 01/22/2021 8:56am BP Systolic 117 mmHg BP Diastolic 79 mmHg Heart Rate 63 /min Height 63 inches 5'3" Weight 213.50 lb BMI (Body Mass Index) 37.8 kg/m2 [place] Body Weight 115 lb Weight 96.844 kg BSA (Body Surface Area) 1.99 m2 Results Description No Information Available Procedures Date Code Description Status 01/22/2021 68186 Office/Outpatient New Moderate M DM 45-59 Minutes Completed Medical Devices Description No Information Available Encounters Type Date Location Provider Dx Diagnosis Office Visit 01/22/2021 8:30a [facility] Eduardo curiel JR, MD K80.20 Calculus of gallbladder w/o cholecystiti s w/o obstruction Assessments Date Code Description Provider 01/22/2021 K80.20 Calculus of gallblad marlys without cholecystitis without obstruction Eduardo Perez JR, MD Plan of Treatment Future Appointment(s):* 02/28/2021 8:30 am - Eduardo Perez JR, MD at [facility] * 02/16/2021 9:15 am - Eduardo Perez JR, MD at [facility] 01/22/2021 - Eduardo Perez JR, MD* K80.20 Calculus of gallbladder without cholecystitis without obstruction* Comments:* The patient had an episode of right upper quadrant pain associated with gallstones. The patient had evidence of cholecystitis without evidence of common bile duct obstruction. Given their symptomatic disease and evidence of gallstones would recommend laparoscopic cholecystectomy. The risks as well as benefits of operative intervention have been discussed extensively with the patient and they agreed to proceed with operative intervention as soon as possible. The risks include but are not limited to infection bleeding damage to surrounding structures i ncluding liver and pancreas and duodenum bile ducts or bowel and possible need for open operative intervention. It is hard to know if she did have a common bile duct stone or not although the episode was relatively self-limiting and at this point has been doing relatively well off fatty food diet and sounds as though she probably had an episode of at least cholecystitis if not a small common bile duct stone that passed and my recommendation is to proceed with a laparoscopic cholecystectomy. Functional Status Description No Information Available Mental Status Description No Information Available Referrals Description No Information Available
--- OUTSIDE RECORDS SUMMARY | 2021-02-16 07:41 | CCD ---
Author Author [facility] Organization [facility] Address Unknown Phone Unavailable Care Team Providers Care Senior Security Analyst Name Role Phone Sharla Teague MD Unavailable Unavailable Sharla Teague MD Unavailable Unavailable Sharla Teague MD Unavailable Unavailable Sharla Teague MD Unavailable Unavailable Sharla Teague MD Unavailable Unavailable Sharla Teague MD Unavailable Unavailable Sharla Teague MD Unavailable Unavailable Sharla Teague MD Unavailable Unavailable Sharla Teague MD Unavailable Unavailable Sharla Teague MD Unavailable Unavailable Sharla Teague MD Unavailable Unavailable Sharla Teague MD Unavailable Unavailable Sharla Teague MD Unavailable Unavailable Sharla Teague MD Unavailable Unavailable Sharla Teague MD Unavailable Unavailable Sharla Teague MD Unavailable Unavailable Sharla Teague MD Unavailable Unavailable Sharla Teague MD Unavailable Unavailable Sharla Teague MD Unavailable Unavailable Sharla Teague MD Unavailable Unavailable Sharla Teague MD Unavailable Unavailable Sharla Teague MD Unavailable Unavailable Sharla Teague MD Unavailable Unavailable Sharla Teague MD Unavailable Unavailable Sharla Teague MD Unavailable Unavailable Sharla Teague MD Unavailable Unavailable Sharla Teague MD Unavailable Unavailable Sharla Teague MD Unavailable Unavailable Sharla Teague MD Unavailable Unavailable Sharla Teague MD Unavailable Unavailable Sharla Teague MD Unavailable Unavailable Sharla Teague MD Unavailable Unavailable Sharla Teague MD Unavailable Unavailable Sharla Teague MD Unavailable Unavailable Sharla Teague MD Unavailable Unavailable Sharla Teague MD Unavailable Unavailable Sharla Teague MD Unavailable Unavailable Sharla Teague MD Unavailable Unavailable Sharla Teague MD Unavailable Unavailable Sharla Teague MD Unavailable Unavailable Sharla Teague MD Unavailable Unavailable Sharla Teague MD Unavailable Unavailable Sharla Teague MD Unavailable Unavailable Sharla Teague MD Unavailable Unavailable Sharla Teague MD Unavailable Unavailable Sharla Teague MD Unavailable Unavailable Sharla Teague MD Unavailable Unavailable Sharla Teague MD Unavailable Unavailable Sharla Teague MD Unavailable Unavailable Sharla Teague MD Unavailable Unavailable Sharla Teague MD Unavailable Unavailable Sharla Teague MD Unavailable Unavailable Sharla Teague MD Unavailable Unavailable Sharla Teague MD Unavailable Unavailable Sharla Teague MD Unavailable Unavailable Sharla Teague MD Unavailable Unavailable Sharla Teague MD Unavailable Unavailable Sharla Teague MD Unavailable Unavailable Sharla Teague MD Unavailable Unavailable Sharla Teague MD Unavailable Unavailable Sharla Teague MD Unavailable Unavailable Sharla Teague MD Unavailable Unavailable Sharla Teague MD Unavailable Unavailable Sharla Teague MD Unavailable Unavailable Sharla Teague MD Unavailable Unavailable Sharla Teague MD Unavailable Unavailable Sharla Teague MD Unavailable Unavailable Sharla Teague MD Unavailable Unavailable Sharla Teague MD Unavailable Unavailable Sharla Teague MD Unavailable Unavailable Sharla Teague MD Unavailable Unavailable Sharla Teague MD Unavailable Unavailable Sharla Teague MD Unavailable Unavailable Sharla Teague MD Unavailable Unavailable Sharla Teague MD Unavailable Unavailable Sharla Teague MD Unavailable Unavailable Sharla Teague MD Unavailable Unavailable LETTIERE, A LIANNA PA Unavailable Unavailable LETTIERE, A LIANNA PA Unavailable Unavailable LETTIERE, A LIANNA PA Unavailable Unavailable LETTIERE, A LIANNA PA Unavailable Unavailable LETTIERE, A LIANNA PA Unavailable Unavailable LETTIERE, A LIANNA PA Unavailable Unavailable LETTIERE, A LIANNA PA Unavailable Unavailable LETTIERE, A LIANNA PA Unavailable Unavailable LETTIERE, A LIANNA PA Unavailable Unavailable LETTIERE, A LIANNA PA Unavailable Unavailable LETTIERE, A LIANNA PA Unavailable Unavailable LETTIERE, A LIANNA PA Unavailable Unavailable LETTIERE, A LIANNA PA Unavailable Unavailable LETTIERE, A LIANNA PA Unavailable Unavailable LETTIERE, A LIANNA PA Unavailable Unavailable LETTIERE, A LIANNA PA Unavailable Unavailable LETTIERE, A LIANNA PA Unavailable Unavailable LETTIERE, A LIANNA PA Unavailable Unavailable LETTIERE, A LIANNA PA Unavailable Unavailable LETTIERE, A LIANNA PA Unavailable Unavailable LETTIERE, A LIANNA PA Unavailable Unavailable LETTIERE, A LIANNA PA Unavailable Unavailable LETTIERE, A LIANNA PA Unavailable Unavailable LETTIERE, A LIANNA PA Unavailable Unavailable LETTIERE, A LIANNA PA Unavailable Unavailable LETTIERE, A LIANNA PA Unavailable Unavailable LETTIERE, A LIANNA PA Unavailable Unavailable LETTIERE, A LIANNA PA Unavailable Unavailable LETTIERE, A LIANNA PA Unavailable Unavailable LETTIERE, A LIANNA PA Unavailable Unavailable LETTIERE, A LIANNA PA Unavailable Unavailable Machovec, B Amberly PA-C Unavailable Unavailable Machovec, B Amberly PA-C Unavailable Unavailable Machovec, B Amberly PA-C Unavailable Unavailable Machovec, B Amberly PA-C Unavailable Unavailable Machovec, B Amebrly PA-C Unavailable Unavailable Machovec, B Amberly PA-C Unavailable Unavailable Machovec, B Amberly PA-C Unavailable Unavailable Machovec, B Amberly PA-C Unavailable Unavailable Machovec, B Amberly PA-C Unavailable Unavailable Machovec, B Amberly PA-C Unavailable Unavailable Machovec, B Amberly PA-C Unavailable Unavailable Machovec, B Amberly PA-C Unavailable Unavailable Machovec, B Amberly PA-C Unavailable Unavailable Machovec, B Amberly PA-C Unavailable Unavailable Machovec, B Amberly PA-C Unavailable Unavailable Machovec, B Amberly PA-C Unavailable Unavailable Machovec, B Amberly PA-C Unavailable Unavailable Machovec, B Amberly PA-C Unavailable Unavailable Machovec, B Amberly PA-C Unavailable Unavailable Machovec, B Amberly PA-C Unavailable Unavailable Machovec, B Amberly PA-C Unavailable Unavailable Machovec, B Amberly PA-C Unavailable Unavailable Machovec, B Amberly PA-C Unavailable Unavailable Machovec, B Amberly PA-C Unavailable Unavailable Machovec, B Amberly PA-C Unavailable Unavailable Machovec, B Amberly PA-C Unavailable Unavailable Machovec, B Amberly PA-C Unavailable Unavailable Machovec, B Amberly PA-C Unavailable Unavailable Machovec, B Amberly PA-C Unavailable Unavailable Machovec, B Amberly PA-C Unavailable Unavailable Machovec, B Amberly PA-C Unavailable Unavailable Machovec, B Amberly PA-C Unavailable Unavailable Machovec, B Amberly PA-C Unavailable Unavailable Machovec, B Amberly PA-C Unavailable Unavailable Machovec, B Amberly PA-C Unavailable Unavailable Machovec, B Amberly PA-C Unavailable Unavailable Machovec, B Amberly PA-C Unavailable Unavailable Machovec, B Amberly PA-C Unavailable Unavailable Machovec, B Amberly PA-C Unavailable Unavailable Machovec, B Amberly PA-C Unavailable Unavailable Machovec, B Amberly PA-C Unavailable Unavailable Machovec, B Amberly PA-C Unavailable Unavailable Machovec, B Amberly PA-C Unavailable Unavailable Machovec, B Amberly PA-C Unavailable Unavailable Machovec, B Amberly PA-C Unavailable Unavailable Machovec, B Amberly PA-C Unavailable Unavailable Machovec, B Amberly PA-C Unavailable Unavailable Machovec, B Amberly PA-C Unavailable Unavailable Machovec, B Amberly PA-C Unavailable Unavailable Machovec, B Amberly PA-C Unavailable Unavailable Machovec, B Amberly PA-C Unavailable Unavailable Machovec, B Amberly PA-C Unavailable Unavailable Machovec, B Amberly PA-C Unavailable Unavailable Machovec, B Amberly PA-C Unavailable Unavailable Machovec, B Amberly PA-C Unavailable Unavailable Machovec, B Amberly PA-C Unavailable Unavailable Machovec, B Amberly PA-C Unavailable Unavailable RIVERA PONCE MD Unavailable Unavailable RIVERA PONCE MD Unavailable Unavailable RIVERA PONCE MD Unavailable Unavailable RIVERA PONCE MD Unavailable Unavailable RIVERA PNOCE MD Unavailable Unavailable RIVERA PONCE MD Unavailable Unavailable RIVERA PONCE MD Unavailable Unavailable RIVERA PONCE MD Unavailable Unavailable RIVERA PONCE MD Unavailable Unavailable RIVERA PONCE MD Unavailable Unavailable RIVERA PONCE MD Unavailable Unavailable RIVERA PONCE MD Unavailable Unavailable RIVERA PONCE MD Unavailable Unavailable RIVERA PONCE MD Unavailable Unavailable RIVERA PONCE MD Unavailable Unavailable RIVERA PONCE MD Unavailable Unavailable RIVERA PONCE MD Unavailable Unavailable RIVERA PONCE MD Unavailable Unavailable RIVERA PONCE MD Unavailable Unavailable RIVERA PONCE MD Unavailable Unavailable RIVERA PONCE MD Unavailable Unavailable RIVERA PONCE MD Unavailable Unavailable RIVERA PONCE MD Unavailable Unavailable RIVERA PONCE MD Unavailable Unavailable RIVERA PONCE MD Unavailable Unavailable RIVERA PONCE MD Unavailable Unavailable RIVERA PONCE MD Unavailable Unavailable RIVERA PONCE MD Unavailable Unavailable RIVERA PONCE MD Unavailable Unavailable RIVERA PONCE MD Unavailable Unavailable RIVERA PONCE MD Unavailable Unavailable RIVERA PONCE MD Unavailable Unavailable RIVERA PONCE MD Unavailable Unavailable RIVEAR PONCE MD Unavailable Unavailable RIVERA PONCE MD Unavailable Unavailable RIVERA PONCE MD Unavailable Unavailable RIVERA PONCE MD Unavailable Unavailable RIVERA PONCE MD Unavailable Unavailable RIVERA PONCE MD Unavailable Unavailable RIVERA PONCE MD Unavailable Unavailable RIVERA PONCE MD Unavailable Unavailable RIVERA PONCE MD Unavailable Unavailable RIVERA PONCE MD Unavailable Unavailable RIVERA PONCE MD Unavailable Unavailable RIVERA PONCE MD Unavailable Unavailable RIVERA PONCE MD Unavailable Unavailable RIVERA PONCE MD Unavailable Unavailable RIVERA PONCE MD Unavailable Unavailable RIVERA PONCE MD Unavailable Unavailable RIVERA PONCE MD Unavailable Unavailable RIVERA PONCE MD Unavailable Unavailable RIVERA PONCE MD Unavailable Unavailable RIVERA PONCE MD Unavailable Unavailable RIVERA PONCE MD Unavailable Unavailable RIVERA PONCE MD Unavailable Unavailable RIVERA PONCE MD Unavailable Unavailable RIVERA PONCE MD Unavailable Unavailable RIVERA PONCE MD Unavailable Unavailable RIVERA PONCE MD Unavailable Unavailable RIVERA PONCE MD Unavailable Unavailable RIVERA PONCE MD Unavailable Unavailable RIVERA PONCE MD Unavailable Unavailable RIVERA PONCE MD Unavailable Unavailable RIVERA PONCE MD Unavailable Unavailable RIVERA PONCE MD Unavailable Unavailable RIVERA PONCE MD Unavailable Unavailable RIVERA PONCE MD Unavailable Unavailable RIVERA PONCE MD Unavailable Unavailable RIVERA PONCE MD Unavailable Unavailable RIVERA PONCE MD Unavailable Unavailable RIVERA PONCE MD Unavailable Unavailable RIVERA PONCE MD Unavailable Unavailable RIVERA PONCE MD Unavailable Unavailable RVIERA PONCE MD Unavailable Unavailable RIVERA PONCE MD Unavailable Unavailable RIVERA PONCE MD Unavailable Unavailable RIVERA PONCE MD Unavailable Unavailable RIVERA PONCE MD Unavailable Unavailable RIVERA PONCE MD Unavailable Unavailable RIVERA PONCE MD Unavailable Unavailable RIVERA PONCE MD Unavailable Unavailable RIVERA PONCE MD Unavailable Unavailable RIVERA PONCE MD Unavailable Unavailable RIVERA PONCE MD Unavailable Unavailable RIVERA PONCE MD Unavailable Unavailable Reyna Sheffield BUSINESS EDUCATION INSTRUCTOR-C Unavailable Unavailabl e NettieReyna BUSINESS EDUCATION INSTRUCTOR-C Unavailable Unavailabl e NettieReyna thomas BUSINESS EDUCATION INSTRUCTOR-C Unavailable Unavailabl e Netite, Reyna Barron BUSINESS EDUCATION INSTRUCTOR-C Unavailable Unavailabl e Nettie, Reyna Barron BUSINESS EDUCATION INSTRUCTOR-C Unavailable Unavailabl e Nettie, Reyna Barron BUSINESS EDUCATION INSTRUCTOR-C Unavailable Unavailabl e Enttie, Reyna Barron BUSINESS EDUCATION INSTRUCTOR-C Unavailable Unavailabl e Nettie, Reyna Barron BUSINESS EDUCATION INSTRUCTOR-C Unavailable Unavailabl e Nettie, Reyna Barron BUSINESS EDUCATION INSTRUCTOR-C Unavailable Unavailabl e Nettie, Reyna Barron BUSINESS EDUCATION INSTRUCTOR-C Unavailable Unavailabl e Nettie, Reyna Barron BUSINESS EDUCATION INSTRUCTOR-C Unavailable Unavailabl e Nettie, Reyna Barron BUSINESS EDUCATION INSTRUCTOR-C Unavailable Unavailabl e Nettie, Reyna Barron BUSINESS EDUCATION INSTRUCTOR-C Unavailable Unavailabl e Nettie, Reyna Barron BUSINESS EDUCATION INSTRUCTOR-C Unavailable Unavailabl e Nettie, Reyna Barron BUSINESS EDUCATION INSTRUCTOR-C Unavailable Unavailabl e Nettie, Reyna Barron BUSINESS EDUCATION INSTRUCTOR-C Unavailable Unavailabl e Nettie, Reyna Barron BUSINESS EDUCATION INSTRUCTOR-C Unavailable Unavailabl e Nettie, Reyna Barron BUSINESS EDUCATION INSTRUCTOR-C Unavailable Unavailabl e Nettie, Reyna Barron BUSINESS EDUCATION INSTRUCTOR-C Unavailable Unavailabl e Nettie, Reyna Barron BUSINESS EDUCATION INSTRUCTOR-C Unavailable Unavailabl e Nettie, Reyna Barron BUSINESS EDUCATION INSTRUCTOR-C Unavailable Unavailabl e Nettie, Reyna Barron BUSINESS EDUCATION INSTRUCTOR-C Unavailable Unavailabl e Nettie, Reyna Barron BUSINESS EDUCATION INSTRUCTOR-C Unavailable Unavailabl e Nettie, Reyna Barron BUSINESS EDUCATION INSTRUCTOR-C Unavailable Unavailabl e Nettie, Reyna Barron BUSINESS EDUCATION INSTRUCTOR-C Unavailable Unavailabl e Nettie, Reyna Barron BUSINESS EDUCATION INSTRUCTOR-C Unavailable Unavailabl e Nettie, Reyna Barron BUSINESS EDUCATION INSTRUCTOR-C Unavailable Unavailabl e Nettie, Reyna Barron BUSINESS EDUCATION INSTRUCTOR-C Unavailable Unavailabl e Nettie, Reyna Barron BUSINESS EDUCATION INSTRUCTOR-C Unavailable Unavailabl e Nettie, Reyna Barron BUSINESS EDUCATION INSTRUCTOR-C Unavailable Unavailabl e Nettie, Reyna Barron BUSINESS EDUCATION INSTRUCTOR-C Unavailable Unavailabl e Nettie, Reyna Barron BUSINESS EDUCATION INSTRUCTOR-C Unavailable Unavailabl e Nettie, Reyna Barron BUSINESS EDUCATION INSTRUCTOR-C Unavailable Unavailabl e Nettie, Reyna Barron BUSINESS EDUCATION INSTRUCTOR-C Unavailable Unavailabl e Nettie, Reyna Barron BUSINESS EDUCATION INSTRUCTOR-C Unavailable Unavailabl e Nettie, Reyna Beatrice BUSINESS EDUCATION INSTRUCTOR-C Unavailable Unavailabl e Nettie, Reyna Pennynifer BUSINESS EDUCATION INSTRUCTOR-C Unavailable Unavailabl e Nettie, Reyna Pennynifer BUSINESS EDUCATION INSTRUCTOR-C Unavailable Unavailabl e Nettie, Reyna Levyfer BUSINESS EDUCATION INSTRUCTOR-C Unavailable Unavailabl e Nettie, Reyna Barron BUSINESS EDUCATION INSTRUCTOR-C Unavailable Unavailabl e Nettie, Reyna Barron BUSINESS EDUCATION INSTRUCTOR-C Unavailable Unavailabl e Nettie, Reyna Pennynifer BUSINESS EDUCATION INSTRUCTOR-C Unavailable Unavailabl e Nettie, Reyna Pennynifer BUSINESS EDUCATION INSTRUCTOR-C Unavailable Unavailabl e Nettie, Reyna Pennynifer BUSINESS EDUCATION INSTRUCTOR-C Unavailable Unavailabl e Nettie, Reyna Pennynifer BUSINESS EDUCATION INSTRUCTOR-C Unavailable Unavailabl e Nettie, Reyna Pennynifer BUSINESS EDUCATION INSTRUCTOR-C Unavailable Unavailabl e Nettie, Reyna Pennynifer BUSINESS EDUCATION INSTRUCTOR-C Unavailable Unavailabl e Nettie, Reyna Pennynifer BUSINESS EDUCATION INSTRUCTOR-C Unavailable Unavailabl e Nettie, Reyna Pennynifer BUSINESS EDUCATION INSTRUCTOR-C Unavailable Unavailabl e Nettie, Reyna Pennynifer BUSINESS EDUCATION INSTRUCTOR-C Unavailable Unavailabl e Nettie, Reyna Beatrice BUSINESS EDUCATION INSTRUCTOR-C Unavailable Unavailabl e Scozzari, K Sally PA Unavailable Unavailable Scozzari, K Sally PA Unavailable Unavailable Scozzari, K Sally PA Unavailable Unavailable Scozzari, K Sally PA Unavailable Unavailable Scozzari, K Sally PA Unavailable Unavailable Scozzari, K Sally PA Unavailable Unavailable Scozzari, K Sally PA Unavailable Unavailable Scozzari, K Sally PA Unavailable Unavailable Scozzari, K Sally PA Unavailable Unavailable Scozzari, K Sally PA Unavailable Unavailable Scozzari, K Sally PA Unavailable Unavailable Scozzari, K Sally PA Unavailable Unavailable Scozzari, K Sally PA Unavailable Unavailable Scozzari, K Sally PA Unavailable Unavailable Scozzari, K Sally PA Unavailable Unavailable Scozzari, K Sally PA Unavailable Unavailable Scozzari, K Sally PA Unavailable Unavailable Scozzari, K Sally PA Unavailable Unavailable Scozzari, K Sally PA Unavailable Unavailable Scozzari, K Sally PA Unavailable Unavailable Scozzari, K Sally PA Unavailable Unavailable Scozzari, K Sally PA Unavailable Unavailable Scozzari, K Sally PA Unavailable Unavailable Scozzari, K Sally PA Unavailable Unavailable Scozzari, K Sally PA Unavailable Unavailable Scozzari, K Sally PA Unavailable Unavailable Scozzari, K Sally PA Unavailable Unavailable Scozzari, K Sally PA Unavailable Unavailable Scozzari, K Sally PA Unavailable Unavailable Scozzari, K Sally PA Unavailable Unavailable Scozzari, K Sally PA Unavailable Unavailable Scozzari, K Sally PA Unavailable Unavailable Scozzari, K Sally PA Unavailable Unavailable Scozzari, K Sally PA Unavailable Unavailable Scozzari, K Sally PA Unavailable Unavailable Scozzari, K Sally PA Unavailable Unavailable Scozzari, K Sally PA Unavailable Unavailable Scozzari, K Sally PA Unavailable Unavailable Scozzari, K Sally PA Unavailable Unavailable Scozzari, K Sally PA Unavailable Unavailable Scozzari, K Sally PA Unavailable Unavailable Scozzari, K Sally PA Unavailable Unavailable Scozzari, K Sally PA Unavailable Unavailable Scozzari, K Sally PA Unavailable Unavailable Scozzari, K Sally PA Unavailable Unavailable Scozzari, K Sally PA Unavailable Unavailable Scozzari, K Sally PA Unavailable Unavailable PFLUGH, FELICITY BUSINESS EDUCATION INSTRUCTOR Unavailable Unavailable PFLUGH, FELICITY BUSINESS EDUCATION INSTRUCTOR Unavailable Unavailable PFLUGH, FELICITY BUSINESS EDUCATION INSTRUCTOR Unavailable Unavailable PFLUGH, FELICITY BUSINESS EDUCATION INSTRUCTOR Unavailable Unavailable PFLUGH, FELICITY BUSINESS EDUCATION INSTRUCTOR Unavailable Unavailable PFLUGH, FELICITY BUSINESS EDUCATION INSTRUCTOR Unavailable Unavailable PFLUGH, FELICITY BUSINESS EDUCATION INSTRUCTOR Unavailable Unavailable PFLUGH, FELICITY BUSINESS EDUCATION INSTRUCTOR Unavailable Unavailable PFLUGH, FELICITY BUSINESS EDUCATION INSTRUCTOR Unavailable Unavailable PFLUGH, FELICITY BUSINESS EDUCATION INSTRUCTOR Unavailable Unavailable PFLUGH, FELICITY BUSINESS EDUCATION INSTRUCTOR Unavailable Unavailable PFLUGH, FELICITY BUSINESS EDUCATION INSTRUCTOR Unavailable Unavailable PFLUGH, FELICITY BUSINESS EDUCATION INSTRUCTOR Unavailable Unavailable PFLUGH, FELICITY BUSINESS EDUCATION INSTRUCTOR Unavailable Unavailable PFLUGH, FELICITY BUSINESS EDUCATION INSTRUCTOR Unavailable Unavailable PFLUGH, FELICITY BUSINESS EDUCATION INSTRUCTOR Unavailable Unavailable PFLUGH, FELICITY BUSINESS EDUCATION INSTRUCTOR Unavailable Unavailable PFLUGH, FELICITY BUSINESS EDUCATION INSTRUCTOR Unavailable Unavailable PFLUGH, FELICITY BUSINESS EDUCATION INSTRUCTOR Unavailable Unavailable PFLUGH, FELICITY BUSINESS EDUCATION INSTRUCTOR Unavailable Unavailable PFLUGH, FELICITY BUSINESS EDUCATION INSTRUCTOR Unavailable Unavailable PFLUGH, FELICITY BUSINESS EDUCATION INSTRUCTOR Unavailable Unavailable PFLUGH, FELICITY BUSINESS EDUCATION INSTRUCTOR Unavailable Unavailable PFLUGH, FELICITY BUSINESS EDUCATION INSTRUCTOR Unavailable Unavailable PFLUGH, FELICITY BUSINESS EDUCATION INSTRUCTOR Unavailable Unavailable PFLUGH, FELICITY BUSINESS EDUCATION INSTRUCTOR Unavailable Unavailable PFLUGH, FELICITY BUSINESS EDUCATION INSTRUCTOR Unavailable Unavailable PFLUGH, FELICITY BUSINESS EDUCATION INSTRUCTOR Unavailable Unavailable PFLUGH, FELICITY BUSINESS EDUCATION INSTRUCTOR Unavailable Unavailable PFLUGH, FELICITY BUSINESS EDUCATION INSTRUCTOR Unavailable Unavailable PFLUGH, FELICITY BUSINESS EDUCATION INSTRUCTOR Unavailable Unavailable PFLUGH, FELICITY BUSINESS EDUCATION INSTRUCTOR Unavailable Unavailable PFLUGH, FELICITY BUSINESS EDUCATION INSTRUCTOR Unavailable Unavailable PFLUGH, FELICITY BUSINESS EDUCATION INSTRUCTOR Unavailable Unavailable PFLUGH, FELICITY BUSINESS EDUCATION INSTRUCTOR Unavailable Unavailable PFLUGH, FELICITY BUSINESS EDUCATION INSTRUCTOR Unavailable Unavailable PFLUGH, FELICITY BUSINESS EDUCATION INSTRUCTOR Unavailable Unavailable PFLUGH, FELICITY BUSINESS EDUCATION INSTRUCTOR Unavailable Unavailable PFLUGH, FELICITY BUSINESS EDUCATION INSTRUCTOR Unavailable Unavailable PFLUGH, FELICITY BUSINESS EDUCATION INSTRUCTOR Unavailable Unavailable PFLUGH, FELICITY BUSINESS EDUCATION INSTRUCTOR Unavailable Unavailable PFLUGH, FELICITY BUSINESS EDUCATION INSTRUCTOR Unavailable Unavailable PFLUGH, FELICITY BUSINESS EDUCATION INSTRUCTOR Unavailable Unavailable PFLUGH, FELICITY BUSINESS EDUCATION INSTRUCTOR Unavailable Unavailable Bethel Tejeda PA Unavailable Unavailable Bethel Tejeda PA Unavailable Unavailable Bethel Tejeda PA Unavailable Unavailable Piper Perez JR, MD Unavailable Unavailable Piper Perez JR, MD Unavailable Unavailable Piper Perez JR, MD Unavailable Unavailable Piper Perez JR, MD Unavailable Unavailable Piper Perez JR, MD Unavailable Unavailable Piper Perez JR, MD Unavailable Unavailable Piper Perez JR, MD Unavailable Unavailable Piper Perez JR, MD Unavailable Unavailable Piper Perez JR, MD Unavailable Unavailable Piper Perez JR, MD Unavailable Unavailable Piper Perez JR, MD Unavailable Unavailable Piper Perez JR, MD Unavailable Unavailable Piper Perez JR, MD Unavailable Unavailable Piper Perez JR, MD Unavailable Unavailable Piper Perez JR, MD Unavailable Unavailable Piper Perez JR, MD Unavailable Unavailable Piper Perez JR, MD Unavailable Unavailable Piper Perez JR, MD Unavailable Unavailable Piper Perez JR, MD Unavailable Unavailable Piper Perez JR, MD Unavailable Unavailable Piper Perez JR, MD Unavailable Unavailable Piper Perez JR, MD Unavailable Unavailable Piper Perez JR, MD Unavailable Unavailable Piper Perez JR, MD Unavailable Unavailable Piper Perez JR, MD Unavailable Unavailable Piper Perez JR, MD Unavailable Unavailable Piper Perez JR, MD Unavailable Unavailable Piper Perez JR, MD Unavailable Unavailable Piper Perez JR, MD Unavailable Unavailable Piper Perez JR, MD Unavailable Unavailable Piper Perez JR, MD Unavailable Unavailable Piper Perez JR, MD Unavailable Unavailable Piper Perez JR, MD Unavailable Unavailable Piper Perez JR, MD Unavailable Unavailable Piper Perez JR, MD Unavailable Unavailable Piper Perez JR, MD Unavailable Unavailable Piper Perez JR, MD Unavailable Unavailable Piper Perez JR, MD Unavailable Unavailable Piper Perez JR, MD Unavailable Unavailable Piper Perez JR, MD Unavailable Unavailable Piper Perez JR, MD Unavailable Unavailable Piper Perez JR, MD Unavailable Unavailable Piper Perez JR, MD Unavailable Unavailable Piper Perez JR, MD Unavailable Unavailable Piper Perez JR, MD Unavailable Unavailable Piper Perez JR, MD Unavailable Unavailable Piper Perez JR, MD Unavailable Unavailable Piper Perez JR, MD Unavailable Unavailable Piper Perez JR, MD Unavailable Unavailable Piper Perez JR, MD Unavailable Unavailable Piper Perez JR, MD Unavailable Unavailable Piper Perez JR, MD Unavailable Unavailable Piper Perez JR, MD Unavailable Unavailable Piper Perez JR, MD Unavailable Unavailable ROBERTO FRAZIER MD Unavailable Unavailable ROBERTO FRAZIER MD Unavailable Unavailable ROBERTO FRAZIER MD Unavailable Unavailable ROBERTO FRAZIER MD Unavailable Unavailable ROBERTO FRAZIER MD Unavailable Unavailable ROBERTO FRAZIER MD Unavailable Unavailable ROBERTO FRAZIER MD Unavailable Unavailable ROBERTO FRAZIER MD Unavailable Unavailable ROBERTO FRAZIER MD Unavailable Unavailable ROBERTO FRAZIER MD Unavailable Unavailable ROBERTO FRAZIER MD Unavailable Unavailable KHROBERTO PATEL MD Unavailable Unavailable KHROBERTO PATEL MD Unavailable Unavailable KHROBERTO PATEL MD Unavailable Unavailable KHROBERTO PATEL MD Unavailable Unavailable KHAIRROBERTO BENEDICT MD Unavailable Unavailable KHAIRALLROBERTO DAMIAN MD Unavailable Unavailable KHAIRALLROBERTO DAMIAN MD Unavailable Unavailable KHAIRALLROBERTO DAMIAN MD Unavailable Unavailable KHAIRALLROBERTO DAMIAN MD Unavailable Unavailable KHAIRROBERTO BENEDICT MD Unavailable Unavailable KHAIRROBERTO BENEDICT MD Unavailable Unavailable KHAIRROBERTO BENEDICT MD Unavailable Unavailable KHAIRROBERTO BENEDICT MD Unavailable Unavailable KHAIRROBERTO BENEDICT MD Unavailable Unavailable KHAIRROBERTO BENEDICT MD Unavailable Unavailable KHROBERTO PATEL MD Unavailable Unavailable KHAIRROBERTO BENEDICT MD Unavailable Unavailable KHAIRALLROBERTO DAMIAN MD Unavailable Unavailable KHAIRALLAH, RAMZI MD Unavailable Unavailable KHAIRALLAH, RAMZI MD Unavailable Unavailable KHAIRALLAH, RAMZI MD Unavailable Unavailable KHAIRALLAH, RAMZI MD Unavailable Unavailable KHAIRALLAH, RAMZI MD Unavailable Unavailable KHAIRALLAH, RAMZI MD Unavailable Unavailable KHAIRALLAH, RAMZI MD Unavailable Unavailable KHAIRALLAH, RAMZI MD Unavailable Unavailable KHAIRALLAH, RAMZI MD Unavailable Unavailable KHAIRALLAH, RAMZI MD Unavailable Unavailable KHAIRALLAH, RAMZI MD Unavailable Unavailable KHAIRALLAH, RAMZI MD Unavailable Unavailable KHAIRALLAH, RAMZI MD Unavailable Unavailable KHAIRALLAH, RAMZI MD Unavailable Unavailable KHAIRALLAH, RAMZI MD Unavailable Unavailable KHAIRALLAH, RAMZI MD Unavailable Unavailable KHAIRALLAH, RAMZI MD Unavailable Unavailable KHAIRALLAH, RAMZI MD Unavailable Unavailable KHAIRALLAH, RAMZI MD Unavailable Unavailable KHAIRALLAH, RAMZI MD Unavailable Unavailable KHAIRALLAH, RAMZI MD Unavailable Unavailable KHAIRALLAH, RAMZI MD Unavailable Unavailable KHAIRALLAH, RAMZI MD Unavailable Unavailable KHAIRALLAH, RAMZI MD Unavailable Unavailable KHAIRALLAH, RAMZI MD Unavailable Unavailable KHAIRALLAH, RAMZI MD Unavailable Unavailable KHAIRALLAH, RAMZI MD Unavailable Unavailable KHAIRALLAH, RAMZI MD Unavailable Unavailable KHAIRALLAH, RAMZI MD Unavailable Unavailable KHAIRALLAH, RAMZI MD Unavailable Unavailable KHAIRALLAH, RAMZI MD Unavailable Unavailable KHAIRALLAH, RAMZI MD Unavailable Unavailable KHAIRALLAH, RAMZI MD Unavailable Unavailable KHAIRALLAH, RAMZI MD Unavailable Unavailable KHAIRALLAH, RAMZI MD Unavailable Unavailable KHAIRALLAH, RAMZI MD Unavailable Unavailable KHAIRALLAH, RAMZI MD Unavailable Unavailable KHAIRALLAH, RAMZI MD Unavailable Unavailable KHAIRALLAH, RAMZI MD Unavailable Unavailable KHAIRALLAH, RAMZI MD Unavailable Unavailable KHAIRALLAH, RAMZI MD Unavailable Unavailable KHAIRALLAH, RAMZI MD Unavailable Unavailable KHAIRALLAH, RAMZI MD Unavailable Unavailable KHAIRALLAH, RAMZI MD Unavailable Unavailable KHAIRALLAH, RAMZI MD Unavailable Unavailable KHAIRALLAH, RAMZI MD Unavailable Unavailable KHAIRALLAH, RAMZI MD Unavailable Unavailable KHAIRALLAH, RAMZI MD Unavailable Unavailable KHAIRALLAH, RAMZI MD Unavailable Unavailable KHAIRALLAH, RAMZI MD Unavailable Unavailable KHAIRALLAH, RAMZI MD Unavailable Unavailable ROBERTO FRAZIER MD Unavailable Unavailable ROBERTO FRAZIER MD Unavailable Unavailable ROBERTO FRAZIER MD Unavailable Unavailable ANDREWSAIRROBERTO BENEDICT MD Unavailable Unavailable KHROBERTO PATEL MD Unavailable Unavailable KHAIRALLROBERTO DAMIAN MD Unavailable Unavailable ROBERTO FRAZIER MD Unavailable Unavailable SEBASTIENALLROBERTO DAMIAN MD Unavailable Unavailable Izant, H Cuco MD Unavailable Unavailable Izant, H Cuco MD Unavailable Unavailable Izant, H Cuco MD Unavailable Unavailable Izant, H Cuco MD Unavailable Unavailable Izant, H Cuco MD Unavailable Unavailable Izant, H Cuco MD Unavailable Unavailable Izant, H Cuco MD Unavailable Unavailable Izant, H Cuco MD Unavailable Unavailable Izant, H Cuco MD Unavailable Unavailable Izant, H Cuco MD Unavailable Unavailable Izant, H Cuco MD Unavailable Unavailable Izant, H Cuco MD Unavailable Unavailable Izant, H Cuco MD Unavailable Unavailable Izant, H Cuco MD Unavailable Unavailable Izant, H Cuco MD Unavailable Unavailable Izant, H Cuco MD Unavailable Unavailable Izant, H Cuco MD Unavailable Unavailable Izant, H Cuco MD Unavailable Unavailable Izant, H Cuco MD Unavailable Unavailable Izant, H Cuco MD Unavailable Unavailable Izant, H Cuco MD Unavailable Unavailable Izant, H Cuco MD Unavailable Unavailable Izant, H Cuco MD Unavailable Unavailable Izant, H Cuco MD Unavailable Unavailable Izant, H Cuco MD Unavailable Unavailable Izant, H Cuco MD Unavailable Unavailable Izant, H Cuco MD Unavailable Unavailable Izant, H Cuco Unavailable Unavailable Izant, H Cuco Unavailable Unavailable Izant, H Cuco Unavailable Unavailable Izant, H Cuco Unavailable Unavailable Izant, H Cuco Unavailable Unavailable Izant, H Cuco Unavailable Unavailable Izant, H Cuco Unavailable Unavailable Izant, H Cuco Unavailable Unavailable Izant, H Cuco Unavailable Unavailable Izant, H Cuco Unavailable Unavailable Izant, H Cuco Unavailable Unavailable Izant, H Cuco Unavailable Unavailable Izant, H Cuco MD Unavailable Unavailable Izant, H Cuco Unavailable Unavailable Izant, H Cuco Unavailable Unavailable Izant, H Cuco Unavailable Unavailable Izant, H Cuco Unavailable Unavailable Izant, H Cuco MD Unavailable Unavailable Izant, H Cuco MD Unavailable Unavailable Izant, H Cuco MD Unavailable Unavailable Izant, H Cuco MD Unavailable Unavailable Izant, H Cuco MD Unavailable Unavailable Izant, H Cuco MD Unavailable Unavailable Izant, H Cuco MD Unavailable Unavailable Izant, H Cuco MD Unavailable Unavailable Izant, H Cuco MD Unavailable Unavailable Izant, H Cuco MD Unavailable Unavailable Izant, H Cuco MD Unavailable Unavailable Izant, H Cuco MD Unavailable Unavailable Izant, H Cuco MD Unavailable Unavailable Izant, H Cuco MD Unavailable Unavailable Izant, H Cuco MD Unavailable Unavailable Izant, H Cuco MD Unavailable Unavailable Izant, H Cuco MD Unavailable Unavailable Izant, H Cuco MD Unavailable Unavailable Izant, H Cuco MD Unavailable Unavailable Izant, H Cuco MD Unavailable Unavailable Izant, H Cuco MD Unavailable Unavailable Izant, H Cuco MD Unavailable Unavailable Izant, H Cuco MD Unavailable Unavailable Izant, H Cuco MD Unavailable Unavailable Izant, H Cuco MD Unavailable Unavailable Izant, H Cuco MD Unavailable Unavailable Izant, H Cuco MD Unavailable Unavailable Izant, H Cuco MD Unavailable Unavailable Izant, H Cuco MD Unavailable Unavailable Izant, H Cuco MD Unavailable Unavailable Izant, H Cuco MD Unavailable Unavailable Izant, H Cuco MD Unavailable Unavailable Izant, H Cuco MD Unavailable Unavailable Izant, H Cuco MD Unavailable Unavailable Izant, H Cuco MD Unavailable Unavailable Izant, H Cuco MD Unavailable Unavailable Izant, H Cuco MD Unavailable Unavailable Izant, H Cuco MD Unavailable Unavailable Izant, H Cuco MD Unavailable Unavailable Izant, H Cuco MD Unavailable Unavailable Izant, H Cuco MD Unavailable Unavailable Izant, H Cuco MD Unavailable Unavailable Izant, H Cuco MD Unavailable Unavailable Izant, H Cuco MD Unavailable Unavailable Izant, H Cuco MD Unavailable Unavailable Izant, H Cuco MD Unavailable Unavailable Izant, H Cuco MD Unavailable Unavailable Izant, H Cuco Unavailable Unavailable Izant, H Cuco MD Unavailable Unavailable Izant, H Cuco MD Unavailable Unavailable Izant, H Cuco MD Unavailable Unavailable Izant, H Cuco MD Unavailable Unavailable Izant, H Cuco MD Unavailable Unavailable Izant, H Cuco MD Unavailable Unavailable Izant, H Cuco MD Unavailable Unavailable Izant, H Cuco MD Unavailable Unavailable Izant, H Cuco MD Unavailable Unavailable Re-disclosure Warning The records that you are about to access may contain information from federally-assisted alcohol or drug abuse programs. If such information is present, then the following federally mandated warning applies: This information has been disclosed to you from records protected by federal confidentiality rules (42 CFR part 2). The federal rules prohibit you from making any further disclosure of this information unless further disclosure is expressly permitted by the written consent of the person to whom it pertains or as otherwise permitted by 42 CFR part 2. A general authorization for the release of medical or other information is NOT sufficient for this purpose. The Federal rules restrict any use of the information to criminally investigate or prosecute any alcohol or drug abuse patient.The records that you are about to access may contain highly sensitive health information, the redisclosure of which is protected by Article 27-F of the [facility] Public Health law. If you continue you may have access to information: Regarding HIV / AIDS; Provided by facilities licensed or operated by the [facility] Office of Mental Health; or Provided by the [facility] Office for People With Developmental Disabilities. If such information is present, then the following [facility] mandated warning applies: This information has been disclosed to you from confidential records which are protected by state law. State law prohibits you from making any further disclosure of this information without the specific written consent of the person to whom it pertains, or as otherwise permitted by law. Any unauthorized further disclosure in violation of state law may result in a fine or shelter sentence or both. A general authorization for the release of medical or other information is NOT sufficient authorization for further disc losure. Family History Family Member Name Family Member Gender Family Member Status Date o f Status Description Data Source(s) Unknown Unknown Problem [facility] ([facility]) Unknown Unknown Problem [facility] ([facility]) Unknown Female Problem (finding) 06/11/2012 12:00:00 AM EST [facility] ([facility]) Unknown Female Problem [facility] ([facility]) Unknown Female Problem [facility] ([facility]) Encounters Encounter Providers Location Date Indications Data Source(s ) Outpatient Attender: Sally Craiger: John Teague MD 02/12/2021 08:34:39 AM EST [facility] Outpatient Attender: Eduardo North/Salvador/James/Rein dl 01/22/2021 08:30:00 AM EDT [facility] Outpatient Attender: RONEL PONCE MDReferrer: John Jennings 01/19/2021 11:54:30 AM EDT [facility] Recurring Patient Attender: FELICITY WILL NPReferrer: John guerrero MD 01/17/2021 07:33:41 AM EDT [facility] Outpatient Attender: John Enamorado 12/15 09:30:00 AM EDT [facility] ([facility] ) Outpatient Attender: Amberly ROMERO CPSCAORT-CPSCNAFT 11/05 09:24:00 AM EDT - 11/20/2020 09:25:00 AM EDT [facility] Patient discharged. Outpatient Attender: John Enamorado 09/08 10:30:00 AM EDT [facility] ([facility] ) Outpatient Attender: FELICITY WILL NPReferrer: John Teague MD 09/07/2020 09:31:36 AM EDT [facility] Recurring Patient Attender: FELICITY WILL NPReferrer: John guerrero MD 09/06/2020 10:13:05 AM EDT [facility] Recurring Patient Attender: FELICITY WILL NPReferrer: John guerrero MD 08/25/2020 04:09:50 PM EDT [facility] Attender: Amberly Cruz PA-C [facility] 08/03/2020 04:31:00 PM EDT - 08/03/2020 04:31:00 PM EDT [facility] ( [facility]) Attender: Amberly Cruz PA-C [facility] 07/18/2020 04:48:00 PM EDT - 07/18/2020 04:48:00 PM EDT Other senior living (current) drug therapy [facility] ([facility]) Other senior living (current) drug therapy OutpatientOFFICE/OUTPATIENT VISIT, EST Attender: Amberly Narinder alejo PA-C [facility] 07/18/2020 01:40:00 PM EDT - 07/18/2020 01:40:00 PM ED T Pain in unspecified handOther senior living (current) drug therapyRheumatoid arthritis without rheumatoid factor, multiple sites [facility] ([facility]) Pain in unspecified hand Other senior living (current) drug therapy Rheumatoid arthritis without rheumatoid factor, multiple sites Attender: Amberly DELGADO [facility] 07/10/2020 09:19:00 AM EDT - 07/10/2020 09:19:00 AM [facility] OFFICE/OUTPATIENT VISIT, ESTOutpatient Attender: Amberly Hughes PA-C [facility] 05/04/2020 11:00:00 AM EST - 05/04/2020 11:00:00 AM ES T Other senior living (current) drug therapyRheumatoid arthritis without rheumatoid factor, multiple sites [facility] ([facility]) Other extermination supervisor (current) drug therapy Rheumatoid arthritis without rheumatoid factor, multiple sites Outpatient Attender: Cuco Perdomo MDReferrer: John Teague MD 04/20/2020 01:39:14 PM EST [facility] Recurring Patient Attender: FELICITY WILL NPReferrer: FELICITY RICHARDS NP 04/20/2020 12:51:05 PM EST [facility] Recurring Patient Attender: FELICITY WILL NPReferrer: FELICITY RICHARDS NP 04/20/2020 12:47:43 PM EST [facility] Attender: ROBERTO FRAZIER MD [facility] 04/18/2020 07:08:00 PM EST - 04/18/2020 07:08:00 PM EST [facility] ( [facility]) Outpatient Attender: John Enamorado 03/28 07:30:00 AM EST [facility] ([facility] ) Attender: Amberly Cruz PA-C [facility] 02/21/2020 09:37:00 AM EST - 02/21/2020 09:37:00 AM EST [facility] ( [facility]) Attender: Beatrice Sheffield BUSINESS EDUCATION INSTRUCTOR-C [facility] 01/18/2020 09:33:00 AM EDT - 01/18/2020 09:33:00 AM EDT [facility] ( [facility]) Outpatient Attender: LIANNA Brownezoey Gongora Maurisio may 12/30/2019 10:45:00 AM EDT [facility] ([facility]) Immunizations Vaccine Date Status Description Data Source(s) COVID-19 VACC, MRNA(PFIZER)/PF 01/07/2021 12:00:00 AM EDT completed [facility] COVID-19 VACCINE Pfizer 01/07/2021 12:00:00 AM EDT completed [facility] Vaccine Series Complete: YESThis Data wa s Submitted to [facility] Via [facility]. Covid 19 Pfizer Vaccine 06/15/2020 12:00:00 AM EST completed Covid 19 Pfizer Vaccine [facility] ([facility]) Source: Other Provider COVID-19 VACCINE Pfizer 06/15/2020 12:00:00 AM EST completed [facility] Vaccine Series Complete: YESThis Data wa s Submitted to [facility] Via [facility]. Covid 19 Pfizer Vaccine 05/25/2020 12:00:00 AM EST completed Covid 19 Pfizer Vaccine [facility] ([facility]) Source: Other Provider COVID-19 VACCINE Pfizer 05/25/2020 12:00:00 AM EST completed [facility] Vaccine Series Complete: NOThis Data was Submitted to [facility] Via [facility]. This CVX code allows reporting of a vacc ination when formulation is unknown (for example, when recording a Influenza vaccination when noted on a vaccination card) 01/12/2020 10:33:00 AM EDT completed MEDEN T ([facility]) Medications Medication Brand Name Start Date Product Form Dose Route Admi nistrative Instructions Pharmacy Instructions Status Indications Reaction Description Data Source(s) 60 mcg (15 mcg x 4)/0.5 mL 01/23/2021 12:00:00 AM EDT syring e 0 INJECT INTRAMUSCULARLY DIRECTED INJECT INTRAMUSCULARLY DIRECTED SOLD: 01/23/2021 [facility] . UNIT 01/23/2021 12:00:00 AM EDT Injectable 1 INJECT INTRAMUSCULARLY DIRECTED INJECT INTRAMUSCULARLY DIRECTED SOLD: 01/23/2021 [facility] 0.3 % 11/29/2020 12:00:00 AM EDT drops 5 INSTILL 1-2 DROPS TO AFFECTED EYE THREE TIMES A DAY FOR 7 DAYS INSTILL 1-2 DROPS TO AFFECTED EYE THREE TIMES A DAY FOR 7 DAYS SOLD: 11/29/2020 [facility] Clindamycin 300 MG Oral Capsule CLINDAMYCIN HCL 11/25/2020 12:00 :00 AM EDT capsule 20 TAKE ONE CAPSULE BY MOUTH TWICE A DAY FOR 10 DAYS TAKE ONE CAPSULE BY MOUTH TWICE A DAY FOR 10 DAYS SOLD: 11/25/2020 [facility] Hydroxychloroquine Sulfate 200 MG Oral Tablet HYDROXYCHLOROQ UINE SULFATE 11/02/2020 12:00:00 AM EDT tablet 180 TAKE ONE TABLE T BY MOUTH TWICE A DAY TAKE ONE TABLET BY MOUTH TWICE A DAY SOLD: 11/05/2020 [facility] 0.3 mg/0.3 mL 09/20/2020 12:00:00 AM EDT auto-injector 2 DIRECTED FOR ANAPHYLAXIS DIRECTED FOR ANAPHYLAXIS SOLD: 09/20/2020 [facility] 1 % 09/08/2020 12:00:00 AM EDT cream 5 APPLY EVERY 2 HOURS WHILE AWAKE FOR 5 DAYS APPLY EVERY 2 HOURS WHILE AWAKE FOR 5 DAYS SOLD: 09/09/2020 [facility] valacyclovir 1000 MG Oral Tablet VALACYCLOVIR HCL 09/08/2020 12: 00:00 AM EDT tablet 21 TAKE ONE TABLET BY MOUTH THREE T IMES A DAY FOR 7 DAYS TAKE ONE TABLET BY MOUTH THREE TIMES A DAY FOR 7 DAYS SOLD: 09/09/2020 [facility] valacyclovir 1000 MG Oral Tablet VALACYCLOVIR HCL 09/08/2020 12: 00:00 AM EDT tablet 21 TAKE ONE TABLET BY MOUTH THREE T IMES A DAY FOR 7 DAYS TAKE ONE TABLET BY MOUTH THREE TIMES A DAY FOR 7 DAYS SOLD: 12/26/2020 [facility] 1 % 09/08/2020 12:00:00 AM EDT cream 5 APPLY EVERY 2 HOURS WHILE AWAKE FOR 5 DAYS APPLY EVERY 2 HOURS WHILE AWAKE FOR 5 DAYS SOLD: 12/26/2020 [facility] Medrol (Sammy) 4 mg tablets in a dose pack {21 (methylpr ednisolone 4 MG Oral Tablet) } Pack 07/10/2020 12:00:00 AM EDT ORAL act bean Medrol Dosepak [facility] ([facility]) 4 mg 07/10/2020 12:00:00 AM EDT tablets,dose pack 21 TAKE DIRECTED PER PACKAGE INSTRUCTIONS TAKE DIRECTED PER PACKAGE INSTRUCTIONS SOLD: 07/10/2020 [facility] 100 mg 07/07/2020 12:00:00 AM EDT capsule 20 TAKE ONE CAPSULE BY MOUTH TWICE A DAY FOR 10 DAYS TAKE ONE CAPSULE BY MOUTH TWICE A DAY FOR 10 DAYS SOLD : 07/07/2020 [facility] 300 mg 06/20/2020 12:00:00 AM EDT capsule 6 TAKE 2 CAPSULES BY MOUTH ONE HOUR PRIOR TO DENTAL APPOINTMENT TAKE 2 CAPSULES BY MOUTH ONE HOUR PRIOR TO DENTAL APPOINTMENT SOLD: 06/24/2020 [facility] Hydroxychloroquine Sulfate 200 MG Oral Tablet HYDROXYCHLOROQ UINE SULFATE 05/04/2020 12:00:00 AM EST tablet 180 TAKE ONE TABLE T BY MOUTH TWICE A DAY TAKE ONE TABLET BY MOUTH TWICE A DAY SOLD: 05/05/2020 [facility] Hydroxychloroquine Sulfate 200 MG Oral Tablet HYDROXYCHLOROQ UINE SULFATE 05/04/2020 12:00:00 AM EST tablet 180 TAKE ONE TABLE T BY MOUTH TWICE A DAY TAKE ONE TABLET BY MOUTH TWICE A DAY SOLD: 08/28/2020 [facility] Hydroxychloroquine Sulfate 200 MG Oral T ablet [Plaquenil] Plaquenil 200 mg tablet Plaquenil 200 mg tablet 05/04/2020 12:00:00 AM EST 1 {tbl} ORAL active hydroxychloroquine sulfate 200 M G Oral Tablet [Plaquenil] [facility] ([facility]) Allergy Injection 2 Or More 04/10/2020 12:00:00 AM EST completed [facility] ([facility]) Medication administered onsite Allergy Injection 2 Or More 03/20/2020 12:00:00 AM EST completed [facility] ([facility]) Medication administered onsite Allergy Injection 2 Or More 02/28/2020 12:00:00 AM EST completed [facility] ([facility]) Medication administered onsite Hydroxychloroquine Sulfate 200 MG Oral T ablet [Plaquenil] Plaquenil 200 mg tablet Plaquenil 200 mg tablet 02/21/2020 12:00:00 AM EST 1 {tbl} ORAL completed hydroxychloroquine sulfate 200 M G Oral Tablet [Plaquenil] [facility] ([facility]) Hydroxychloroquine Sulfate 200 MG Oral Tablet HYDROXYCHLOROQ UINE SULFATE 02/21/2020 12:00:00 AM EST tablet 180 TAKE ONE TABLET BY MOUTH TWO TIMES EVERY DAY TAKE ONE TABLET BY MOUTH TWO TIMES EVERY DAY SOLD: 02/23/2020 [facility] Allergy Injection 2 Or More 02/07/2020 12:00:00 AM EST completed [facility] ([facility]) Medication administered onsite Medrol (Sammy) 4 mg tablets in a dose pack {21 (methylpr ednisolone 4 MG Oral Tablet) } Pack 01/18/2020 12:00:00 AM EDT ORAL com pleted Medrol Dosepak [facility] ([facility]) 4 mg 01/18/2020 12:00:00 AM EDT tablets,dose pack 21 DIRECTED DIRECTED SOLD: 01/18/2020 [facility] Allergy Injection 2 Or More 01/17/2020 12:00:00 AM EDT completed [facility] ([facility]) Medication administered onsite 1 gram 01/10/2020 12:00:00 AM EDT tablet 21 TAKE ONE TABLET BY MOUTH THREE TIMES A DAY FOR 7 DAYS TAKE ONE TABLET BY MOUTH THREE TIMES A DAY FOR 7 DAYS SOLD: 01/11/2020 [facility] Prednisone 20 MG Oral Tablet Prednisone 12/30/2019 12:00:00 AM EDT active [facility] ([facility]) 20 mg 12/30/2019 12:00:00 AM EDT tablet 15 TAKE ONE TABLET BY MOUTH THREE TIMES A DAY FOR FIVE DAYS TAKE ONE TABLET BY MOUTH THREE TIMES A D AY FOR FIVE DAYS SOLD: 12/30/2019 [facility] Allergy Injection 2 Or More 12/28/2019 12:00:00 AM EDT completed [facility] ([facility]) Medication administered onsite Insurance Providers Payer name Policy type / Coverage type Policy ID Covered libertarian ID Covered libertarian's relationship to kilgore Policy [id number] SP [id number] [facility] [id number] SP [id number] [facility] [id number] SP [id number] [employer] [id number] [employer] [id number] 0 [id number] [employer] / UMR F [id number] SELF [id number] [employer] F [id number] SELF [id number] [employer] F [id number] SELF [id number] [employer] [id number] [employer] [id number] UMR F [id number] SELF [id number] UMR F [id number] SELF [id number] UMR F [id number] SELF [id number] [employer] [id number] Self [id number] [employer] [id number] Self [id number] [employer] [id number] Self [id number] [employer] [id number] Self [employer] [id number] Self [employer] Commercial [id number] Self UMR [id number] Commercial Insur ance Co. .[id number] UMR HEA [id number] S [id number] [employer] Maintenance Organization (HMO) [id number] Self [id number] [employer] (HMO) [id number] Self [id number] [employer] (HMO) [id number] Self [id number] [employer] [id number] Self [id number] UMR [id number] S [id number] [employer] [id number] Self [id number] [employer] [id number] Self [id number] Problems, Conditions, and Diagnoses Code Display Name Description Problem Type Effective Dates Data Source(s) T63.441A Toxic effect of venom of bee s, accidental (unintentional), initial encounter TOXIC EFFECT OF VENOM OF BEES, ACCIDENTAL, INIT Diagnosis 11/20/2020 09:24:00 AM EDT [facility] T78.40XA Allergy, unspecified, initial encounter ALLERGY, UNSPECIFIED, INITIAL ENCOUNTER Diagnosis 11/20/2020 09:24:00 AM EDT [facility] Surgeries/Procedures Procedure Description Date Indications Data Source(s) OFFICE OUTPATIENT NEW 45 MINUTES 01/22/2021 12:00:00 A EDViktor CARY ([facility], ) OFFICE OUTPATIENT VISIT 25 MINUTES 12/15/2020 12:00:00 AM EDT RAEANN ([facility]) OFFICE OUTPATIENT NEW 20 MINUTES OFFICE/OUTPATIENT VISIT NEW 11/20/2020 12:00:00 AM T [facility] Mammogram 11/03/2020 12:00:00 AM EDT DANIELE ([facility]) PERIODIC PREVENTIVE MED EST PATIENT 40-64YRS 12:00:00 AM EDT RAEANN ([facility]) OFFICE/OUTPATIENT VISIT, EST 07/18/2020 12:00:00 AM EDT - 07/18/2020 12:00:00 AM EDT [facility] ([facility]) Methylprednisolone 80 MG Per ML 07/19/19 12:00:00 AM EDT - 07/18/2020 12:00:00 AM EDT [facility] ([facility]) THER/PROPH/DIAG INJ, SC/IM 07/18/2020 12 :00:00 AM EDT - 07/18/2020 12:00:00 AM EDT [facility] ([facility]) ASSAY OF SERUM ALBUMIN 07/18/2020 12:00: 00 AM EDT - 07/18/2020 12:00:00 AM EDT [facility] ([facility]) ALANINE AMINO (ALT) (SGPT) 07/18/2020 12 :00:00 AM EDT - 07/18/2020 12:00:00 AM EDT [facility] ([facility]) TRANSFERASE (AST) (SGOT) 07/18/2020 12:0 0:00 AM EDT - 07/18/2020 12:00:00 AM EDT [facility] ([facility]) ASSAY OF UREA NITROGEN 07/18/2020 12:00: 00 AM EDT - 07/18/2020 12:00:00 AM EDT [facility] ([facility]) ASSAY OF CREATININE 07/18/2020 12:00:00 AM EDT - 07/18 12:00:00 AM EDT [facility] ([facility]) C-REACTIVE PROTEIN 07/18/2020 12:00:00 AM EDT - 2020 12:00:00 AM EDT [facility] ([facility]) RBC SED RATE, AUTOMATED 07/18/2020 12:00 :00 AM EDT - 07/18/2020 12:00:00 AM EDT [facility] ([facility]) COMPLETE CBC W/AUTO DIFF WBC 07/18/2020 12:00:00 AM EDT - 07/18/2020 12:00:00 AM EDT [facility] ([facility]) ROUTINE VENIPUNCTURE 07/18/2020 12:00:00 AM EDT - 07/18/2020 12:00:00 AM EDT [facility] ([facility]) OFFICE/OUTPATIENT VISIT, EST 05/04/2020 12:00:00 AM EST - 05/04/2020 12:00:00 AM EST [facility] ([facility]) ASSAY OF SERUM ALBUMIN 05/04/2020 12:00: 00 AM EST - 05/04/2020 12:00:00 AM EST [facility] ([facility]) ALANINE AMINO (ALT) (SGPT) 05/04/2020 12 :00:00 AM EST - 05/04/2020 12:00:00 AM EST [facility] ([facility]) TRANSFERASE (AST) (SGOT) 05/04/2020 12:0 0:00 AM EST - 05/04/2020 12:00:00 AM EST [facility] ([facility]) ASSAY OF CREATININE 05/04/2020 12:00:00 AM EST - 05/04 12:00:00 AM EST [facility] ([facility]) C-REACTIVE PROTEIN 05/04/2020 12:00:00 AM EST - 2020 12:00:00 AM EST [facility] ([facility]) RBC SED RATE, AUTOMATED 05/04/2020 12:00 :00 AM EST - 05/04/2020 12:00:00 AM EST [facility] ([facility]) COMPLETE CBC W/AUTO DIFF WBC 05/04/2020 12:00:00 AM EST - 05/04/2020 12:00:00 AM EST [facility] ([facility]) ROUTINE VENIPUNCTURE 05/04/2020 12:00:00 AM EST - 05/04/2020 12:00:00 AM EST [facility] ([facility]) PROF SVAUTUMN ALLG IMMNTX X W/PRV ALLGIC XTRCS NJXS 2020 12:00:00 AM EST [facility] ([facility]) PROF SVCS ALLG IMMNTX X W/PRV ALLGIC XTRCS NJXS 2019 12:00:00 AM EST [facility] ([facility]) PROF SVCS ALLG IMMNTX X W/PRV ALLGIC XTRCS NJXS 2019 12:00:00 AM EST [facility] ([facility]) PROF SVCS ALLG IMMNTX X W/PRV ALLGIC XTRCS NJXS 2019 12:00:00 AM EST [facility] ([facility]) PROF SVCS ALLG IMMNTX X W/PRV ALLGIC XTRCS NJXS 2019 12:00:00 AM EDT [facility] ([facility]) PROF SAMANO ALLG IMMNTX X W/PRV ALLGIC XTRCS NJXS 2019 12:00:00 AM EDT [facility] ([facility]) OPH MEDICAL XM&EVAL COMPRHNSV ESTAB PT 1/> VST 12/26 12:00:00 AM EDT [facility] ([facility]) VISUAL FIELD XM UNI/BI W/INTERP EXTENDED EXAM 12/27/19 20 12:00:00 AM EDT [facility] ([facility] [place]) COMPUTERIZED OPHTHALMIC IMAGING RETINA 12/27/2019 12:0 0:00 AM EDT [facility] ([facility]) Results ID Date Data Source [id number] 02/12/2021 08:34:39 AM EST [facility] PC[facility]: Patricia LarsonDOB: 1955Provider: Letha Stewart: 02/08/2021 Reason For VisitPatricia Larson is here today for Left Knee. Patricia had her second Covid vaccine on 06/15/20. Patricia received a Covid booster shot on 01/07/21. Patricia Larson is an established patient here for follow up. Surgery DOS: 04/12/2019 LTKR. Patient is retired. History of Present IllnessPatient follows up today for her left knee, she is status post total knee replacement which was done by Dr Perdomo just about 2 years ago. Patient states for the last couple months he has had some anterior medial knee pain but primarily only when she does stairs. When she walks on flat ground she really does not notice this pain. Prior to Covid she was going to the gym routinely but really has not gotten back into this routine since the pandemic started. No injuries that she can recall. She states the pain does not last or linger. She is not noted any swelling in the knee or any redness. No trauma that she can recall. Results/DataXRays were ordered, obtained and interpreted today in the office. Indication: pain/dysfunction. Side: Left Site: Knee Views: 3 Views, Standing AP, Lateral and Merchant's Findings: hardware is in good position. no new fractures or dislocations. the joint remains reduced. no evidence of implant loosening. AssessmentPatient is status post left total knee replacement with patellofemoral pain. Plan X- Ray I Knee - 3 views (XRays were ordered, obtained and interpreted today in theoffice. Indication: pain/dysfunction.); Status:Complete; Done: 08Feb2021 Perform:SOS14 (General); Due:22Feb2021; Last Updated By:Garfield Samayoa; 02/08/2021 2:46:34 PM;Ordered; For:Left knee pain; Ordered By:Sally Stewart;Weight Bearing Status : Non-weight bearingLaterality: : Left Patient's pain is all along the medial retinacular region. She does admit to being less active since the pandemic started. She used to go to the gym all the time before this occurred but really has not gotten back into this. I encouraged her to work on some quad strengthening to see if this will help with her symptoms. We discussed physical therapy but she does not feel that she needs to do this. I told her if her symptoms get worse she can let me know. She will follow-up as scheduled for her routine knee replacement follow-up. Work / School NoteThe patient is not working at this time. Patricia Larson is retired. This document was dictated and electronically signed using My[employer] Speaking software. A reasonable attempt at proof reading has been made to minimize errors. Please call with any questions. Signatures Electronically signed by : Sally Stewart PA-C; Feb 08 2021 3:06PM EST (Author) Electronically signed by : Lianna Law M.D.; Feb 12 2021 8:34AM EST (Author) Name Value Range Interpretation Code Description Data Anayeli rce(s) Supporting Document(s) ID Date Data Source [id number] 01/19/2021 11:54:30 AM EDT [facility] PCName: Patricia LarsonDOB: 1955Provider: Piper Ponce: 01/17/2021 Reason For VisitPatricia Larson is here today for Left RF. Patricia received a Covid booster shot on 01/07/21. Patricia Larson is a new patient. She states her finger was injured in October 2020 while walking her dog, the leash pulled her finger. Patient is retired. Plan 1. X-Ray I Fingers - 2+ views (XRays were ordered, obtained and interpreted today in the office. Indication: pain/dysfunction.); Status:Complete; Done: 17Jan2021 Perform:SOS19 (Hand); Due:31Jan2021; Last Updated By:Monica Garcia; 01/17/2021 9:16:03 AM;Ordered; For:Pain of finger of left hand; Ordered By:Piper Ponce;Laterality: : Left HISTORY: left ring finger forcibly extended and dog leash in October 2020. Bruising and swelling initially, still with discomfort with golfing only. Anti-inflammatory medication has provided minimal relief. The patient has had no significant treatment otherwise. The patient denies pain elsewhere. No numbness. No prior history of problems of this nature.EXAM: The patient appears well-developed, well- nourished, and in no acute distress. The patient's body habitus is approximately normal weight. The patient is oriented to person, place and time. The patient's mood is appropriate to situation. The patient's coordination is normal.The hand shows mild swelling at the left ring finger metacarpophalangeal joint. There is tenderness to palpation diffusely about the joint, but not in any specific location. There is minimal tenderness to palpation elsewhere. Metacarpal phalangeal joint motion causes discomfort, but there is no laxity with radial/ulnar, volar/dorsal stressing of the metacarpophalangeal joint. IP joint motion is intact and without pain. The patient is neurovascularly intact to light touch to all digits, brisk capillary refill to all digits. There are no skin lesions.X-RAYS: X-rays were visualized, and interpreted in the office today for diagnostic purposes of the left ring finger. Views: AP, Lateral . The x- rays reveal normal alignment, and normal bony ossification. There is no fracture, dislocation, or subluxation. ASSESSMENT/PLAN: - October 2020 left ring finger radial collateral ligament sprainThe patient appears to have sprained the metacarpal phalangeal joint of the digit, but there is no obvious laxity of the collateral ligaments, and therefore I do not feel that there is any need for surgical intervention. Coban jose angel tape immobilization of the digit to prevent any significant isolated stressing of the joint was re commended, if felt to be helpful. These injuries can take quite some time to improve, usually multiple months, which can be quite frustrating. Cortisone injection could be considered in the future if struggles persist, either to the MCP joint or the periarticular joint capsule region, although not typically necessary.The patient was provided with my office contact information with telephone numbers. Should there be any persistent concerns or change in symptoms, for which the patient would like to be seen, they may call and contact me to be seen at any point. Work / School NoteThe incident described by the patient is a competent medical cause of this injury. The patient's complaints are consistent with the history of the injury/illness. The patient's history of the injury/illness is consistent with my objective findings. The percentage of temporary impairment is 0%. The patient is not working at this time. Patricia Larson is retired. DisclaimersThis document was dictated and electronically signed using VIRxSYS software. A reasonable attempt at proof reading has been made to minimize errors. Please call with any questions. Signatures Electronically signed by : Piper Ponce M.D.; Jan 19 2021 11:54AM EST (Author) Name Value Range Interpretation Code Description Data Anayeli rce(s) Supporting Document(s) ID Date Data Source [id number] 12/13/2020 09:49:00 AM EDT [facility] ([facility]) Name Value Range Interpretation Code Description Data Anayeli rce(s) Supporting Document(s) Microalbumin Urine 5.8 mg/L 1.3-20.0 [facility] Urine Creatinine 130.8 mg/dL 30.0-125.0 [facility] ([facility] Microalb/Creat Ratio 4.4 ug/mg 0.0-30.0 [facility] ID Date Data Source [id number] 12/13/2020 09:49:00 AM EDT [facility] Name Value Range Interpretation Code Description Data Anayeli rce(s) Supporting Document(s) Hemoglobin A1c/Hemoglobin.total in Blood 6.6 % [facility] ([facility]) Lab Result Notes: Pre-Diabetes 5.7 - 6.4 % Diabetes = or > 6.5% Glucose mean value [Mass/volume] in Blood Estimated fr om glycated hemoglobin 143 mg/dL 60-110 [facility] ([facility] ) ID Date Data Source [id number] 12/13/2020 09:49:00 AM EDT [facility] Name Value Range Interpretation Code Description Data Anayeli rce(s) Supporting Document(s) Glucose [Mass/volume] in Serum or Plasma 101 mg/dL 74-99 [facility] ([facility]) 100-125 mg/dL PRE-DIABETES/FASTING >126 mg/dL DIABETES/FASTING Urea nitrogen [Mass/volume] in Serum or Plasma 17 mg/dL 7-18 [facility] ([facility]) Creatinine 0.9 mg/dL 0.6-1.3 [facility] [place] Potassium [Moles/volume] in Serum or Plasma 4.2 meq/L 3.5-5.1 [facility] ([facility]) Sodium [Moles/volume] in Serum or Plasma 142 meq/L 136-145 [facility] ([facility]) Chloride [Moles/volume] in Serum or Plasma 104 meq/L 98-107 [facility] ([facility]) Calcium [Mass/volume] in Serum or Plasma 9.1 mg/dL 8.5-10.1 [facility] ([facility]) Carbon dioxide, total [Moles/volume] in Serum or Plasma 31 meq/L 21 -32 [facility] ([facility]) Aspartate aminotransferase [Enzymatic activity/volume] in Serum or Plasma 22 U/L 15-37 [facility] ([facility] ) Total Bilirubin 0.4 mg/dL 0.2-1.0 [facility] ([facility]) Alkaline phosphatase isoenzyme [Units/volume] in Serum or Pl asma 82 mg/dL 46-116 [facility] ([facility]) Alanine aminotransferase [Enzymatic activity/volume] in Seru m or Plasma 36 U/L -78 [facility]) Albumin [Mass/volume] in Serum or Plasma 3.5 g/dL 3.4-5.0 [facility] ([facility]) Proteinase 3 Ab [Units/volume] in Serum 6.8 g/dL 6.4-8.2 [facility] ([facility]) A/G Ratio 1.06 CALC 1.00-1.90 [facility]) Glomerular filtration rate/1.73 sq M pre dicted among blacks [Volume Rate/Area] in Serum or Plasma by Creatinine-based formula (MDRD) Laboratory test result [facility] <content>CHRONIC KIDNEY DISEASE STAGING PER NKF</content>
<content></content>
<content>STAGE I & II GFR >= 60 NORMAL TO MILDLY DECREASED</content>
<content>STAGE III GFR 30-59 MODERATELY DECREASED</content>
<content>STAGE IV GFR 15-29 SEVERELY DECREASED</content>
<content>STAGE V GFR <15 VERY LITTLE GFR LEFT</content>
<content>ESRD GFR <15 ON PRE BILLING SPECIALIST</content>
<content></content> Glomerular filtration rate/1.73 sq M pre dicted among non-blacks [Volume Rate/Area] in Serum or Plasma by Creatinine-based formula (MDRD) Laboratory test result [facility] ([facility] ) ID Date Data Source [id number] 12/13/2020 09:49:00 AM EDT [facility] Name Value Range Interpretation Code Description Data Anayeli rce(s) Supporting Document(s) Hemoglobin A1c/Hemoglobin.total in Blood Laboratory test result [facility] ([facility]) ID Date Data Source [id number] 11/25/2020 12:00:00 AM EDT [facility] Name Value Range Interpretation Code Description Data Anayeli rce(s) Supporting Document(s) SARS-CoV2 Rapid Antigen Negative [facility] This lab was reported by [facility]. ID Date Data Source [id number] 09/07/2020 09:31:36 AM EDT [facility] PCName: Patricia LarsonDOB: 1955Provider: Nathaly Will: 09/06/2020 Reason For VisitPatricia Larson is here today for right knee pain. Patricia had her second Covid vaccine on 06/15/20. Patricia Larson is an established patient here for follow up. Surgery DOS: 04/12/2019. Surgery Description: left knee replacement. Patient is retired. History of Present IllnessLesia returns for reevaluation of her right knee symptoms. She has primary tricompartmental osteoarthritis that she has opted to treat conservatively over the past several years. It has been over 6 months since she has received a steroid injection. She would like to proceed today as she is noting some inflammatory symptoms secondary to increased activities recently. She was seen in April of this year by Dr. Perdomo for follow-up of her left total knee replacement. She has done very well and advises me that she does not need to be seen by him again in a couple years. As far as the right knee is concerned, there was no recent injury or trauma. She has crepitation particularly with flexed knee activities. Her pain level is a 3-4. AssessmentChronic primary osteoarthritis of the right knee PlanPlan, Assessment and Recommendation(s) continue with current plan. continue with conservative treatment. Follow up as needed, if not improving, or getting worse. She wished to proceed with a steroid injection to calm her inflammatory symptoms. She has been through viscosupplementation in the past as well. If the steroid injection is minimally effective, we could certainly proceed with viscosupplementation in the way of Euflexxa again if she so wishes. She will continue with [id number] NSAIDs as needed as well as a no or low impact related exercise program to maintain her motion and strength. Work / School Note Patricia Larson is retired. This document was dictated and electronically signed using VIRxSYS software. A reasonable attempt at proof reading has been made to minimize errors. Please call with any questions. Signatures Electronically signed by : Felicity Will NP; Sep 06 2020 11:25AM EST (Author) Electronically signed by : Dieudonne Marin M.D.; Sep 07 2020 9:31AM EST Name Value Range Interpretation Code Description Data Anayeli rce(s) Supporting Document(s) ID Date Data Source [id number] 09/06/2020 08:11:00 AM EDT [facility] ([facility]) Name Value Range Interpretation Code Description Data Anayeli rce(s) Supporting Document(s) Cholesterol [Mass/volume] in Serum or Plasma 196 mg/dL 131-200 [facility] ([facility]) Triglyceride [Mass/volume] in Serum or Plasma 108 mg/dL 30-150 [facility] ([facility]) Cholesterol in HDL [Mass/volume] in Serum or Plasma 56 mg/dL 35-60 [facility] ([facility]) Cholesterol in LDL [Mass/volume] in Serum or Plasma by calcu lation 118 CALC 50-159 [facility] ([facility]) ID Date Data Source [id number] 09/06/2020 08:11:00 AM EDT [facility] ([facility]) Name Value Range Interpretation Code Description Data Anayeli rce(s) Supporting Document(s) Glucose [Mass/volume] in Serum or Plasma 129 mg/dL 74-99 [facility] ([facility]) 100-125 mg/dL PRE-DIABETES/FASTING >126 mg/dL DIABETES/FASTING Creatinine 0.8 mg/dL 0.6-1.3 [facility] Urea nitrogen [Mass/volume] in Serum or Plasma 18 mg/dL 7-18 [facility] ([facility]) Sodium [Moles/volume] in Serum or Plasma 143 meq/L 136-145 [facility] ([facility]) Chloride [Moles/volume] in Serum or Plasma 104 meq/L 98-107 [facility] ([facility]) Potassium [Moles/volume] in Serum or Plasma 4.1 meq/L 3.5-5.1 [facility] ([facility]) Carbon dioxide, total [Moles/volume] in Serum or Plasma 30 meq/L 21 -32 [facility] ([facility]) Calcium [Mass/volume] in Serum or Plasma 8.9 mg/dL 8.5-10.1 [facility] ([facility]) Alkaline phosphatase isoenzyme [Units/volume] in Serum or Pl asma 104 mg/dL 46-116 [facility] ([facility]) Aspartate aminotransferase [Enzymatic activity/volume] in Serum or Plasma 24 U/L 15-37 [facility] ([facility] ) Total Bilirubin 0.5 mg/dL 0.2-1.0 [facility] ([facility]) Alanine aminotransferase [Enzymatic activity/volume] in Seru m or Plasma 38 U/L 12-78 [facility] Albumin [Mass/volume] in Serum or Plasma 3.7 g/dL 3.4-5.0 [facility]) Proteinase 3 Ab [Units/volume] in Serum 7.0 g/dL 6.4-8.2 [facility] ([facility]) A/G Ratio 1.12 CALC 1.00-1.90 [facility] Glomerular filtration rate/1.73 sq M pre dicted among non-blacks [Volume Rate/Area] in Serum or Plasma by Creatinine-based formula (MDRD) Laboratory test result [facility] ) Glomerular filtration rate/1.73 sq M pre dicted among blacks [Volume Rate/Area] in Serum or Plasma by Creatinine-based formula (MDRD) Laboratory test result [facility] ([facility]) <content>CHRONIC KIDNEY DISEASE STAGING PER NKF</content>
<content></content>
<content>STAGE I & II GFR >= 60 NORMAL TO MILDLY DECREASED</content>
<content>STAGE III GFR 30-59 MODERATELY DECREASED</content>
<content>STAGE IV GFR 15-29 SEVERELY DECREASED</content>
<content>STAGE V GFR <15 VERY LITTLE GFR LEFT</content>
<content>ESRD GFR <15 ON PRE BILLING SPECIALIST</content>
<content></content> ID Date Data Source [id number] 09/06/2020 08:11:00 AM EDT [facility] ([facility]) Name Value Range Interpretation Code Description Data Anayeli rce(s) Supporting Document(s) Hemoglobin A1c/Hemoglobin.total in Blood 6.9 % [facility] Lab Result Notes: Pre-Diabetes 5.7 - 6.4 % Diabetes = or > 6.5% Glucose mean value [Mass/volume] in Blood Estimated fr om glycated hemoglobin 151 mg/dL 60-110 [facility] ID Date Data Source [id number] 09/06/2020 08:11:00 AM EDT [facility] Name Value Range Interpretation Code Description Data Anayeli rce(s) Supporting Document(s) Leukocytes [#/volume] in Blood by Automated count 4.5 x10*3/UL 4.1-10 .9 [facility] Erythrocytes [#/volume] in Blood by Automated count 4.88 x10*6/UL 4.2 0-6.30 [facility] Hematocrit [Volume Fraction] of Blood by Automated count 43.4 % 3 7.0-51.0 [facility] Hemoglobin [Mass/volume] in Blood 14.6 g/dL 12.0-18.0 [facility] MCHC 33.6 g/dL 31.0-38.0 [facility] ([facility]) MCH 29.9 pg 26.0-32.0 [facility] ([facility]) MCV 88.9 fL 80.0-97.0 [facility] ([facility]) Platelets [#/volume] in Blood by Automated count 160 x10*3/UL 140-440 [facility] Erythrocyte distribution width [Ratio] by Automated count 13.3 % 11.6-13.7 [facility] ([facility]) Lymph % 41.8 % 10.0-58.5 [facility] MPV 8.9 FL 7.8-11.0 [facility] ([facility]) Neut % 49.2 % 37.0-92.0 [facility] Mid % 9.0 % 1.7-9.3 [facility] ([facility]) Lymph # 1.9 x10*3/UL 0.6-4.1 [facility] ([facility]) Mid # 0.4 x10*3/UL 0.1-0.6 [facility] ([facility]) Neut # 2.2 x10*3/UL 2.0-7.8 [facility] ([facility]) ID Date Data Source [id number] 07/18/2020 02:10:00 PM EDT [facility] ([facility]) Name Value Range Interpretation Code Description Data Anayeli rce(s) Supporting Document(s) 0.8 mg/dL 0.0-0.5 Above high normal CRP [facility] ([facility]) ID Date Data Source [id number] 07/18/2020 02:10:00 PM EDT [facility] ([facility]) Name Value Range Interpretation Code Description Data Anayeli rce(s) Supporting Document(s) 0.9 mg/dL 0.6-1.2 CREATININE [facility] ([facility]) >60 eGFR Non- [facility] ([facility]) >60 eGFR [facility] ([facility]) ID Date Data Source [id number] 07/18/2020 02:10:00 PM EDT [facility] ([facility]) Name Value Range Interpretation Code Description Data Anayeli rce(s) Supporting Document(s) 16 mg/dL 10-23 BUN [facility] ([facility]) ID Date Data Source [id number] 07/18/2020 02:10:00 PM EDT [facility] ([facility]) Name Value Range Interpretation Code Description Data Anayeli rce(s) Supporting Document(s) 43 U/L 15-37 Above high normal AST [facility] ([facility]) ID Date Data Source [id number] 07/18/2020 02:10:00 PM EDT [facility] ([facility]) Name Value Range Interpretation Code Description Data Anayeli rce(s) Supporting Document(s) 162 U/L 30-65 Above high normal ALT [facility] ([facility]) ID Date Data Source [id number] 07/18/2020 02:10:00 PM EDT [facility] Name Value Range Interpretation Code Description Data Anayeli rce(s) Supporting Document(s) 2.8 g/dL 3.4-4.4 Below low normal ALB [facility]) ID Date Data Source [id number] 07/18/2020 02:10:00 PM EDT [facility] Name Value Range Interpretation Code Description Data Anayeli rce(s) Supporting Document(s) 51 mm/Hr 0-20 Above high normal [facility] ID Date Data Source [id number] 07/18/2020 02:10:00 PM EDT [facility] ([facility]) Name Value Range Interpretation Code Description Data Anayeli rce(s) Supporting Document(s) NEGATIVE (NEG) LYME I[facility]IGG [facility] @ [facility]) A Negative serologic test for Lyme Disea seindicates no serologic evidence of infectionwith B burgdorferi at the time this specimenwas collected. A repeat specimen should be collected in 2 to 4 weeks if clinicallyindicated. In-house assay revised on 05/29/2020 and nowincludes antibodies against outer surfaceprotein (OspC) in addition to VlsE.Unless otherwise specified, testing performed by [facility] [address] [place] [id number]

ID Date Data Source [id number] 07/18/2020 02:10:00 PM EDT [facility] ([facility] [employer]) Name Value Range Interpretation Code Description Data Anayeli rce(s) Supporting Document(s) 8.2 10*3/uL 3.7-10.1 WBC [facility] ([facility]) 4.55 10*6/uL 3.50-5.50 RBC [facility] ([facility]) 14.1 g/dL 12.0-16.0 HGB [facility] ([facility]) 44.1 % 36.0-48.0 HCT [facility] ([facility]) 97.0 fL 80.0-100.0 MCV [facility] ([facility]) 30.9 pg 26.0-34.0 MCH [facility] ([facility]) 12.5 % 10.0-15.0 RDW [facility] ([facility]) 31.9 g/dL 31.0-37.0 MCHC [facility] ([facility]) 6.8 fL 6.0-10.0 MPV [facility] ([facility]) 299 10*3/uL 150-500 PLATELETS [facility] ([facility]) 5.23 10*3/uL 2.10-8.00 LEROY# [facility] ([facility]) 1.49 10*3/uL 1.00-5.00 LYM# [facility] ([facility]) 0.46 10*3/uL 0.10-1.00 MONO# [facility] ([facility]) 0.9 10*3/uL 0.0-0.5 Above high normal EOS# [facility] ([facility]) 0.1 10*3/uL 0.0-0.2 BASO# [facility] ([facility]) 63.8 % 50.0-80.0 LEROY% [facility] ([facility]) 5.6 % 2.0-10.0 MONO% [facility] ([facility]) 18.2 % 25.0-50.0 Below low normal LYM% [facility] 11.1 % 0.0-5.0 Above high normal EOS% [facility] ([facility]) 1.3 % 0.0-4.0 BASO% [facility] ([facility]) ID Date Data Source [id number] 07/18/2020 09:08:03 PM EDT [facility] Name Value Range Interpretation Code Description Data Anayeli rce(s) Supporting Document(s) LYME IGM/IGG AB @ (NEG) [facility] A Negative serologic test for Lyme Disea seindicates no serologic evidence of infectionwith B burgdorferi at the time this specimenwas collected. A repeat specimen should be collected in 2 to 4 weeks if clinicallyindicated. In-house assay revised on 05/29/2020 and nowincludes antibodies against outer surfaceprotein (OspC) in addition to VlsE. ID Date Data Source [id number] 05/04/2020 11:29:00 AM EST [facility] ([facility]) Name Value Range Interpretation Code Description Data Anayeli rce(s) Supporting Document(s) <0.2 0.0-0.5 CRP [facility] ([facility]) ID Date Data Source [id number] 05/04/2020 11:29:00 AM EST [facility] ([facility]) Name Value Range Interpretation Code Description Data Anayeli rce(s) Supporting Document(s) >60 eGFR [facility] ([facility]) 0.9 mg/dL 0.6-1.2 CREATININE [facility] ([facility]) >60 eGFR Non- [facility] ([facility]) ID Date Data Source [id number] 05/04/2020 11:29:00 AM EST [facility] ([facility]) Name Value Range Interpretation Code Description Data Anayeli rce(s) Supporting Document(s) 21 U/L 15-37 AST [facility] ([facility]) ID Date Data Source [id number] 05/04/2020 11:29:00 AM EST [facility] ([facility]) Name Value Range Interpretation Code Description Data Anayeli rce(s) Supporting Document(s) 36 U/L 30-65 ALT [facility] ([facility]) ID Date Data Source [id number] 05/04/2020 11:29:00 AM EST [facility] ([facility]) Name Value Range Interpretation Code Description Data Anayeli rce(s) Supporting Document(s) 3.7 g/dL 3.4-4.4 ALB [facility] ([facility]) ID Date Data Source [id number] 05/04/2020 11:29:00 AM EST [facility] ([facility]) Name Value Range Interpretation Code Description Data Anayeli rce(s) Supporting Document(s) 3 mm/Hr 0-20 ESR [facility] ([facility]) ID Date Data Source [id number] 05/04/2020 11:29:00 AM EST [facility] ([facility]) Name Value Range Interpretation Code Description Data Anayeli rce(s) Supporting Document(s) 4.8 10*3/uL 3.7-10.1 WBC [facility] ([facility]) 4.79 10*6/uL 3.50-5.50 RBC [facility] ([facility]) 44.6 % 36.0-48.0 HCT [facility] ([facility]) 14.7 g/dL 12.0-16.0 HGB [facility] ([facility]) 30.8 pg 26.0-34.0 MCH [facility] ([facility]) 93.1 fL 80.0-100.0 MCV [facility] ([facility]) 164 10*3/uL 150-500 PLATELETS [facility] ([facility]) 11.7 % 10.0-15.0 RDW [facility] ([facility]) 33.1 g/dL 31.0-37.0 MCHC [facility] ([facility]) 8.7 fL 6.0-10.0 MPV [facility] ([facility]) 1.98 10*3/uL 1.00-5.00 LYM# [facility] ([facility]) 2.13 10*3/uL 2.10-8.00 LEROY# [facility] ([facility]) 0.41 10*3/uL 0.10-1.00 MONO# [facility] ([facility]) 0.2 10*3/uL 0.0-0.5 EOS# [facility] ([facility]) 0.1 10*3/uL 0.0-0.2 BASO# [facility] ([facility]) 41.0 % 25.0-50.0 LYM% [facility] ([facility]) 44.0 % 50.0-80.0 Below low normal LEROY% [facility] ([facility]) 8.5 % 2.0-10.0 MONO% [facility] ([facility]) 2.1 % 0.0-4.0 BASO% [facility] ([facility]) 4.5 % 0.0-5.0 EOS% [facility] ([facility]) ID Date Data Source [id number] 04/20/2020 01:39:14 PM EST [facility] PCName: Patricia LarsonDOB: 1955Provider: Peter Perdomo: 04/20/2020 Reason For VisitPatricia Larson is here today for bilateral knees. Patricia Larson is an established patient here for follow up. Surgery DOS: 04/12/2019. Surgery Description: left knee replacement. Patient is retired. History of Present IllnessShe is 1 year status post left total knee replacement. She gets occasional medial pain which may be less a day but otherwise she is walking on a regular basis anywhere from 1-1/2 miles to 2 miles a day. Her right knee is tolerable has not caused any flares. This knee is undergone prior ACL reconstruction surgery and for arthroscopies. Results/DataX-rays were obtained of bilateral knees 3 views. Left knee replacement looks well fixed in good alignment no evidence of loosening or polyethylene wear. Right knee shows collapse of the medial compartment with [id number] moderate joint space narrowing in the lateral and patellofemoral joint with neutral alignment. No significant change compared to films taken 3 years ago. AssessmentStatus post left total knee replacementPrimary osteoarthritis right knee Plan X-Ray I Knee - 3 views (XRays were ordered, obtained and interpreted today in theoffice. Indication: pain/dysfunction.); Status:Complete; Done: 20Apr2020 Perform:SOS14 (General); Due:[id number]; Last Updated By:Amber Marshall; 04/20/2020 1:26:41 PM;Ordered; For:Pain in both knees; Ordered By:Cuco Perdomo;Weight Bearing Status : Weight bearingLaterality: : Bilateral She is doing great with her knees. I recommended she continue with her exercise program consider adding biking or swimming to help her get aerobic activity and help reduce some weight. We reviewed infection precautions. Plan follow-up in 2 years with x-rays of both knees or sooner if she needs to come in for cortisone injection in the right knee. Signatures Electronically signed by : Cuco Perdomo M.D.; Apr 20 2020 1:39PM EST (Author) Name Value Range Interpretation Code Description Data Anayeli rce(s) Supporting Document(s) ID Date Data Source [id number] 03/27/2020 08:13:00 AM EST [facility] ([facility]) Name Value Range Interpretation Code Description Data Anayeli rce(s) Supporting Document(s) Hemoglobin A1c/Hemoglobin.total in Blood 6.4 % [facility] Lab Result Notes: Pre-Diabetes 5.7 - 6.4 % Diabetes = or > 6.5% Glucose mean value [Mass/volume] in Blood Estimated fr om glycated hemoglobin 137 mg/dL 60-110 [facility] ([facility] ) ID Date Data Source [id number] 03/27/2020 08:13:00 AM EST [facility] ([facility]) Name Value Range Interpretation Code Description Data Anayeli rce(s) Supporting Document(s) Thyrotropin [Units/volume] in Serum or Plasma by Detec tion limit <= 0.05 mIU/L 2.31 uIU/mL 0.36-3.74 [facility] ([facility] ) ID Date Data Source [id number] 03/27/2020 08:13:00 AM EST [facility] ([facility]) Name Value Range Interpretation Code Description Data Anayeli rce(s) Supporting Document(s) Cholesterol [Mass/volume] in Serum or Plasma 158 mg/dL 131-200 [facility] ([facility]) Cholesterol in HDL [Mass/volume] in Serum or Plasma 44 mg/dL 35-60 [facility] ([facility]) Triglyceride [Mass/volume] in Serum or Plasma 110 mg/dL 30-150 [facility] ([facility]) Cholesterol in LDL [Mass/volume] in Serum or Plasma by calcu lation 92 CALC 50-159 [facility] ([facility]) ID Date Data Source [id number] 03/27/2020 08:13:00 AM EST [facility] ([facility]) Name Value Range Interpretation Code Description Data Anayeli rce(s) Supporting Document(s) Urea nitrogen [Mass/volume] in Serum or Plasma 20 mg/dL 7-18 [facility] ([facility]) Glucose [Mass/volume] in Serum or Plasma 116 mg/dL 74-99 [facility] ([facility]) 100-125 mg/dL PRE-DIABETES/FASTING >126 mg/dL DIABETES/FASTING Creatinine 0.8 mg/dL 0.6-1.3 [facility] ([facility]) Sodium [Moles/volume] in Serum or Plasma 141 meq/L 136-145 [facility] ([facility]) Potassium [Moles/volume] in Serum or Plasma 4.2 meq/L 3.5-5.1 [facility] ([facility]) Chloride [Moles/volume] in Serum or Plasma 105 meq/L 98-107 [facility] ([facility]) Carbon dioxide, total [Moles/volume] in Serum or Plasma 34 meq/L 21 -32 [facility] ([facility]) Calcium [Mass/volume] in Serum or Plasma 8.5 mg/dL 8.5-10.1 [facility] ([facility]) Alkaline phosphatase isoenzyme [Units/volume] in Serum or Pl asma 75 mg/dL 46-116 [facility] ([facility]) Total Bilirubin 0.5 mg/dL 0.2-1.0 [facility] ([facility]) Aspartate aminotransferase [Enzymatic activity/volume] in Serum or Plasma 19 U/L 15-37 [facility] ([facility] ) Alanine aminotransferase [Enzymatic activity/volume] in Seru m or Plasma 31 U/L 12-78 [facility] ([facility]) Albumin [Mass/volume] in Serum or Plasma 3.5 g/dL 3.4-5.0 [facility] ([facility]) Proteinase 3 Ab [Units/volume] in Serum 6.3 g/dL 6.4-8.2 [facility] ([facility]) A/G Ratio 1.25 CALC 1.00-1.90 [facility]) Glomerular filtration rate/1.73 sq M pre dicted among non-blacks [Volume Rate/Area] in Serum or Plasma by Creatinine-based formula (MDRD) Laboratory test result [facility] ([facility] ) Glomerular filtration rate/1.73 sq M pre dicted among blacks [Volume Rate/Area] in Serum or Plasma by Creatinine-based formula (MDRD) Laboratory test result [facility] ([facility]) <content>CHRONIC KIDNEY DISEASE STAGING PER NK[facility]</content>
<content></content>
<content>STAGE I & II GFR >= 60 NORMAL TO MILDLY DECREASED</content>
<content>STAGE III GFR 30-59 MODERATELY DECREASED</content>
<content>STAGE IV GFR 15-29 SEVERELY DECREASED</content>
<content>STAGE V GFR <15 VERY LITTLE GFR LEFT</content>
<content>ESRD GFR <15 ON PRE BILLING SPECIALIST</content>
<content></content> Procedure Social History Code Duration Value Status Description Data Source(s ) Caffeine Use Details 08/03/2020 12:00:00 AM EDT completed soda, 16 oz [facility] ([facility]) Smoking 08/03/2020 12:00:00 AM EDT Unknown if ever smoked comp leted Unknown if ever smoked [facility] ([facility]) Alcohol Use Details 07/18/2020 12:00:00 AM EDT complet ed wine 1 glass occasionally [facility] ([facility]) 07/18/2020 12:00:00 AM EDT Never smoked tobacco comple niurka Never smoked tobacco [facility] ([facility]) Smoking 12/30/2019 12:00:00 AM EDT Patient has never smoked co mpleted Patient has never smoked [facility] ([facility]) Smoking 12/27/2019 12:00:00 AM EDT Patient has never smoked co mpleted [facility] Vital Signs ID Date Data Source UNK Name Value Range Interpretation Code Description Data Source(s) Systolic blood pressure 117 mm[Hg] 117 mm[Hg] M [facility] ([facility]) Body height 63 [in_i] 63 [in_i] [facility] ([facility]) 5'3" Diastolic blood pressure 79 mm[Hg] 79 mm[Hg] [facility] ([facility]) Heart rate 63 /min 63 /min [facility] ([facility]) Body weight 213.50 [lb_av] 213.50 [lb_av] [facility] Body mass index (BMI) [Ratio] 37.8 kg/m2 37.8 k g/m2 [facility] ([facility]) Body surface area Derived from formula 1.99 m2 1.99 m2 [facility] ([facility]) [place] body weight 115 [lb_av] 115 [lb_av] [facility] Body weight 96.844 kg 96.844 kg [facility] ([facility]) Body mass index (BMI) [Ratio] 36.9 kg/m2 36.9 k g/m2 [facility] ([facility]) Systolic blood pressure 116 mm[Hg] 116 mm[Hg] [facility] ([facility]) Diastolic blood pressure 68 mm[Hg] 68 mm[Hg] [facility] ([facility]) Heart rate 74 /min 74 /min [facility] ([facility]) Body height 64 [in_i] 64 [in_i] [facility] ([facility]) 5'4" Body weight 215.00 [lb_av] 215.00 [lb_av] [facility] ([facility]) Oxygen saturation in Arterial blood by Pulse oximetry 97 % 97 % [facility] ([facility]) RM Air Systolic blood pressure 118 mm[Hg] 118 mm[Hg] [facility] ([facility]) Diastolic blood pressure 58 mm[Hg] 58 mm[Hg] [facility] ([facility]) Body mass index (BMI) [Ratio] 36.7 kg/m2 36.7 k g/m2 [facility] ([facility]) Heart rate 72 /min 72 /min [facility] ([facility]) Body height 64 [in_i] 64 [in_i] [facility] ([facility]) 5'4" Body weight 214.00 [lb_av] 214.00 [lb_av] [facility] ([facility]) Body height 160.02 cm 160.02 cm [facility] Body weight 97.976 kg 97.976 kg [facility] ([facility]) Systolic blood pressure 132 mm[Hg] 132 mm[Hg] N [facility] ([facility]) Diastolic blood pressure 84 mm[Hg] 84 mm[Hg] [facility] ([facility]) Body mass index (BMI) [Ratio] 38.26 kg/m2 Overweight 38.26 kg/m2 [facility] ([facility]) Body height 160.02 cm 160.02 cm [facility] ([facility]) Body weight 98.883 kg 98.883 kg [facility] ([facility]) Systolic blood pressure 124 mm[Hg] 124 mm[Hg] N [facility] ([facility]) Diastolic blood pressure 70 mm[Hg] 70 mm[Hg] [facility] ([facility]) Body mass index (BMI) [Ratio] 38.62 kg/m2 Overweight 38.62 kg/m2 [facility] ([facility]) Systolic blood pressure 116 mm[Hg] 116 mm[Hg] [facility] Diastolic blood pressure 78 mm[Hg] 78 mm[Hg] [facility] Heart rate 68 /min 68 /min [facility] Body height 64 [in_i] 64 [in_i] [facility] 5'4" Body weight 209.00 [lb_av] 209.00 [lb_av] [facility] ([facility]) Body mass index (BMI) [Ratio] 35.9 kg/m2 35.9 k g/m2 [facility] Systolic blood pressure 145 mm[Hg] 145 mm[Hg] M [facility] ([facility]) Diastolic blood pressure 88 mm[Hg] 88 mm[Hg] [facility]) Oxygen saturation in Arterial blood by Pulse oximetry 97 % 97 % [facility] ([facility], [facility]) Heart rate 72 /min 72 /min [facility] ([facility]) Respiratory rate 18 /min 18 /min [facility] ( [facility], [facility]) Body temperature 98.5 [degF] 98.5 [degF] [facility] ([facility], [facility]) Body weight 209.00 [lb_av] 209.00 [lb_av] [facility] ([facility], [facility]) Body height 63 [in_i] 63 [in_i] [facility] ([facility]) 5'3" Body mass index (BMI) [Ratio] 37.0 kg/m2 37.0 k g/m2 [facility] ([facility], [facility]) Intraocular pressure Right eye 16 mm[Hg] 16 mm [Hg] [facility] ([facility]) Intraocular pressure Left eye 16 mm[Hg] 16 mm[ Hg] [facility] ([facility]) , Applanation 10:12 Am Patient Treatment Plan of Care Planned Activity Planned Date Details Description Data Source (s) Medrol (Sammy) 4 mg tablets in a dose pack 07/10/2020 12:00:00 AM EDT [facility] ([facility]) Hydroxychloroquine Sulfate 200 MG Oral Tablet [[place]] 05/04/2020 12:00:00 AM EST [facility] Hydroxychloroquine Sulfate 200 MG Oral Tablet [[place]] 02/21/2020 12:00:00 AM EST [facility]) Medrol ([facility]) 4 mg tablets in a dose pack 01/18/2020 12:00:00 AM EDT [facility] ([facility])
--- OUTSIDE RECORDS SUMMARY | 2021-02-16 07:41 | CCD | Continuity of Care Document ---
Author Author Lab Schedule, Patricia Saldaña Organization Unknown Address [address] [place] [id number] Phone Unavailable Care Team Providers Care Presentation Specialist Name Role Phone John Teague MD AUTM [phone] acacia Smith MD AUTM [phone] Amberly Cruz AUTM [phone] Cuco Perdomo MD AUTM Unavailable Problems Active [...] Vaccine Lot # U-Flu Given 01/12/2020 Influenza,Unspecified 08443 Given 12/23/2018 Influenza Virus Vaccine, Quadrivalent ([id number]), Derived From Cell 49263 Given 11/16/2018 Boostrix Tetanus Diphtheria Pertussis (Over Age 65) U-Flu Given 12/20/2017 Influenza,Unspecified 80148 Given 03/28/2015 Zoster Vaccine [id number] Given 03/09/2014 Influenza Virus Vaccine 13098 Given 02/18/2012 Adacel- Tetanus Diphtheria P ertussis (Age64 & Under) [id number] Refused 02/17/2013 Influenza Virus Vaccine Vital Signs Date Vital Result Comment 09/08/2020 10:27am BP Systolic 118 mmHg BP Diastolic 58 mmHg Heart Rate 72 /min Height 64 inches 5'4" Weight 214.00 lb BMI (Body Mass Index) 36.7 kg/m2 03/28/2020 8:31am BP Systolic 116 mmHg BP Diastolic 78 mmHg Heart Rate 68 /min Height 64 inches 5'4" Weight 209.00 lb BMI (Body Mass Index) 35.9 kg/m2 Results Test Acquired Date Facility Test Result H/L Range Note Laboratory test finding 12/13/2020 [facility] [facility] Hand: [place] [address] [phone] A1c <pending> Complete Blood Count 09/06/2020 [facility] Hand: Dr [place] [address] [phone] WBC 4.5 x10*3/UL 4.1 - 10.9 RBC [...] 2.2 x10*3/UL 2.0 - 7.8 A1c 09/06/2020 [facility] Hand: [place] [address] [phone] Hba1c 6.9 % High <5.7 1 Est Avg Glucose 151 mg/dL High 60 - 110 Comprehensive Chem Profile 09/06/2020 [facility] Javier caban [facility] M[employer] Hand: [place] [address] [phone] Glucose 129 mg/dL High 74 - 99 2 BUN 18 mg/dL 7 - 18 Creatinine [...] mL/min >60 GFR >= 60 mL/min >60 3 Lipid Profile 09/06/2020 [facility] M[employer] Hand: [place] [address] [phone] Cholesterol 196 mg/dL 131 - 200 Triglycerides 108 mg/dL 30 - 150 HDL Cholesterol 56 mg/dL 35 - 60 LDL (Calculated) 118 CALC 50 - 159 1 Lab Result Notes: Pre-Diabetes 5.7 - 6.4 % Diabetes = or > 6.5% 2 100-125 mg/dL PRE-DIABET ES/FASTING >126 mg/dL DIABETES/FASTING 3 CHRONIC KIDNEY DISEASE STAGI NG PER NKF STAGE I & II GFR >= 60 NORMAL TO MILDLY DECREASED STAGE III GFR 30-59 MODERATELY DECREASED STAGE IV GFR 15-29 SEVERELY DECREASED STAGE V GFR <15 VERY LITTLE GFR LEFT ESRD GFR <15 ON RE[employer]ATED [employer] Procedures Date Code Description Status 11/03/2020 [id number] Mammogram Completed 09/08/2020 69637 Est Prevent Med (40-64Yrs) Compl eted 10/27/2019 [id number] Bone Mineral Density Test [facility] [place] 10/27/2019 [id number] Mammogram Completed 10/15/2018 [id number] Mammogram Completed 10/15/2017 [id number] Mammogram Completed 03/10/2017 [id number] Diabetic Retinal Eye Exam [facility] [place] 10/03/2016 [id number] Mammogram Completed 03/06/2016 [id number] Diabetic Retinal Eye Exam [facility] [place] 11/07/2015 [id number] Bone Mineral Density Test [facility] [place] 10/03/2015 [id number] Mammogram Completed 03/06/2015 [id number] Diabetic Retinal Eye Exam Comple [facility] 09/27/2014 [id number] Mammogram Completed Medical Devices Description No Information Available Encounters Type Date Location Provider Dx Diagnosis Office Visit 09/08/2020 10:30a [facility] John Teague M.D. Z00.00 Encntr [...] M.D. 09/06/2020 R73.01 Impaired fasting glucose Lab [facility]a Plan of Treatment Future Appointment(s):* 12/15/2020 3:30 pm - [facility] 09/08/2020 - John Teague M.D.* Z00.00 Encntr for general adult medical exam w/o abnormal findings * E78.01 Familial hypercholesterolemia * M06.09 Rheumatoid arthritis w/o rheumatoid factor, multiple sites * E11.9 Type 2 diabetes mellitus without complications * R21 Rash and other nonspecific skin eruption * J30.9 Allergic rhinitis, unspecified * B00.89 Other herpesviral infection * Z91.030 Bee allergy status * Z13.89 Encounter for screening for other disorder * * Comments:* 1. Annual well visit: Well education was done today. She will see Dr. Ruff next month for her [facility] care as well as will obtain mammogram then at [facility]. Her last mammogram was in October 2019, which was normal. Her last DEXA scan then was also unremarkable. She is encouraged to follow positive lifestyle changes.2. Familial hypercholesterolemia: Increased cholesterol and LDL. I have encouraged her to watch fatty and fried foods in her diet carefully. We will continue to monitor.3. Rheumatoid arthritis: Recent flare-up after sinus infection, which improved with Depo-Medrol. She is on Plaquenil. Patient is following up with Rheumatology and will continue appropriate follow up.4. Type 2 diabetes mellitus: Patient meets the criteria of being diabetic now with HgbA1c of 6.9. We discussed various ways of controlling her blood sugar level including diet and exercises as well as using metformin. Patient prefers to work on her diet and exercises at this point. She does exercises with walking daily. We will monitor.5. Rash and other nonspecific skin eruption: Possible drug rash, erythema marginatum.6. Allergic rhinitis: Good results with allergy shots and Zyrtec and will follow up appropriately.7. Herpesviral infection: Doing well with the use of De navir and Valtrex as needed for cold sores. I have refilled those today. We will monitor.8. Bee allergy status: She has a new talking EpiPen and understands its usage.Ongoing cares: I am going to see her again in 3 months with CMP, HgbA1c and KAUSHIK. If she has new problems or issues sooner she will let us know. Functional Status Description No Information Available Mental Status Description No Information Available Referrals Description No Information Available
[2021-02-16] MEDS ORDERED: SCOPOLAMINE 1MG TRANSDERMAL PATCH TOP ONE (09:05)
[2021-02-16] MEDS ORDERED: ONDANSETRON 4MG/2ML VIAL As Ordered ONE (09:33)
[2021-02-16] MEDS ORDERED: fentaNYL 100 MCG/2 ML INJECTION (J3010) As Ordered ONE ×2 (09:33→09:46)
[2021-02-16] MEDS ORDERED: dexameTHASONE 4 MG/ML 1ML VIAL (J1100 PER 1MG) As Ordered ONE (09:33)
[2021-02-16] MEDS ORDERED: ACETAMINOPHEN 1000MG 100ML IV BTL (OFIRMEV) (J0131 PER 10MG) As Ordered ONE (09:33)
[2021-02-16] MEDS ORDERED: MIDAZOLAM INJ 2MG/2ML VIAL (J2250 PER 1MG) As Ordered ONE (09:33)
[2021-02-16] MEDS ORDERED: SUGAMMADEX SODIUM 500 MG/5 ML VIAL (BRIDION) As Ordered ONE (09:33)
[2021-02-16] MEDS ORDERED: ROCURONIUM BROMIDE 50 MG/5 ML VIAL As Ordered ONE ×2 (09:33→09:46)
[2021-02-16] MEDS ORDERED: propofoL 200 MG/20 ML VIAL As Ordered ONE (09:33)
[2021-02-16] MEDS ORDERED: LIDOCAINE 2% 100MG/5ML SDV (FOR ANES.) As Ordered ONE (09:33)
[2021-02-16] MEDS ORDERED: METOCLOPRAMIDE INJ 10MG/2ML VIAL (J2765 PER 1) As Ordered ONE (09:33)
[2021-02-16] MEDS ORDERED: KETOROLAC 60MG 2ML VIAL As Ordered ONE (09:48)
[2021-02-16] MEDS ORDERED: HYDROMORPHONE HCL 0.5 MG/ 0.5 ML SYRINGE (J1170 PER 1) IV PRN (10:40)
[2021-02-16] MEDS ORDERED: LR 1,000 ML IV SCH (10:40)
[2021-02-16] MEDS ORDERED: ONDANSETRON 4MG/2ML VIAL IV PRN (10:40)
[2021-02-16] MEDS ORDERED: oxyCODONE 5MG TAB PO PRN (10:40)
[2021-02-16] MEDS ORDERED: traMADol 50 MG TAB PO PRN (10:45)
--- NOTE | 2021-02-16 11:47 | RO ---
OPERATIVE NOTE DATE OF OPERATION: 02/16/2021 PREOPERATIVE DIAGNOSIS: History of cholecystitis. POSTOPERATIVE DIAGNOSIS: History of cholecystitis. PROCEDURE: Laparoscopic cholecystectomy. SURGEON: Eduardo Perez Jr, MD HAT STEAMER: ANESTHESIA: General endotracheal anesthesia. EBL: Minimal. FLUIDS: Crystalloid. DESCRIPTION OF PROCEDURE: The patient was taken to the operating room, was given general anesthesia. After adequate anesthesia and preoperative antibiotics were given, the patient was prepped and draped in usual sterile fashion. A supraumbilical incision was made with skin knife. Blunt dissection was carried down to fascia. Fascia was entered with Veress needle and insufflated to 15 mm of pressure. Dilating 10 mm trocar was placed and under direct visualization epigastric and two lateral trocars were placed. The gallbladder was grasped, retracted superiorly. There were numerous adhesions of the omentum up against the gallbladder which were taken down with Hook cautery and eventually the neck of the gallbladder was cleared of peritoneum circumferentially, on the posterior neck of the gallbladder as well as working my up to the cystic plate I was able to create a nice window behind the neck of the gallbladder. Working back downstream there was a lot of fibrosis on the neck of the gallbladder but eventually I was again able to get to a nice spot where it tapered beautifully and this was clipped proximally, distally and transected. The gallbladder then was removed from the gallbladder bed using electrocautery. There was a very small branch of the artery coming up to the gallbladder itself high up in the bed, otherwise this was transected and cauterized. The gallbladder was removed from the gallbladder bed, placed in an Endo Catch bag and brought out through the umbilicus. Because there was such a fine line between the gallbladder wall and the liver itself there were some areas that were just gently oozing and I treated with electrocautery but because of this presentation I felt that placing some Artista would be beneficial. This was placed in the bed of the dissection and was all nice clean, dry, and white appearing at the time of the removal of the gallbladder through the umbilicus in an Endo Catch bag. The umbilicus was closed with #0 Vicryl in fascial layer and all incisions were closed with 4-0 Vicryl and Steri-Strips and dry, sterile dressing was applied. The patient was awakened, extubated and brought to recovery room awake, alert, and hemodynamically stable. Sponge and needle counts correct x2.
[2021-02-16 12:50] VITALS: BP 133/65
== END 2021-02-16 12:50 | disposition home or self-care (01) ==
LOC: M SDC 07:35
PROVIDERS: ATTEND Surgery
DX: K80.10 Calculus of gallbladder with chronic cholecystitis without obstruction (principal); E11.9 Type 2 diabetes mellitus without complications; D50.9 Iron deficiency anemia, unspecified; M72.2 Plantar fascial fibromatosis; K74.60 Unspecified cirrhosis of liver; Z88.1 Allergy status to other antibiotic agents; Z88.2 Allergy status to sulfonamides; Z88.5 Allergy status to narcotic agent; Z88.8 Allergy status to other drugs, medicaments and biological substances; Z79.82 Long term (current) use of aspirin; Z79.899 Other long term (current) drug therapy
CPT/HCPCS: 47562; 88304; J0131; J1100; J1885; J1956; J2250; J2405; J2765; J3010

== ENCOUNTER → 2021-12-24 | Outpatient (CLI) | payer OTHER ==
[~2021-12-24] MED LIST changes: -BUPIVACAINE/EPIN 0.25% 30 ML VIAL As Ordered ONE; -LIDOCAINE 1% MDV 20ML VIAL SQ PRN; -LR 1,000 ML IV ONE; -LevoFLOXacin IV 500 MG in IV 1 EA IV ONE
== END ==
LOC: M WHC 09:13
PROVIDERS: ATTEND Family Medicine
DX: K76.0 Fatty (change of) liver, not elsewhere classified (principal)

== ENCOUNTER → 2022-09-25 | Outpatient (CLI) | payer OTHER ==
[~2022-09-25] MED LIST changes: -HYDR200T3 PO; +HYDR200T46 PO
[2022-09-25 13:50] LABS: COMPLEMENT C3 116.7 MG/DL (90.0-170.0)
[2022-09-25 13:51] LABS: COMPLEMENT C4 25.4 MG/DL (12-36); IMMUNOGLOBULIN A 166.1 MG/DL (40-350); IMMUNOGLOBULIN M 250.2 MG/DL (50-300)
[2022-09-27 09:09] LABS: ALPHA 1 ANTITRYPSIN 105 mg/dL (101-187); E003-IGE HORSE EPITHELIA/DAND <0.10 kU/L (Class 0); E004-IGE COW DANDER <0.10 kU/L (Class 0); F002-IgE Milk < 0.10 kU/L (Class 0); F004-IgE Wheat < 0.10 kU/L (Class 0); F013-IgE Peanut < 0.10 kU/L (Class 0); F014-IgE Soybean < 0.10 kU/L (Class 0); F024-IgE Shrimp 0.34 kU/L (Class I); F026-IgE Pork < 0.10 kU/L (Class 0); F027-IgE Beef < 0.10 kU/L (Class 0); F245-IgE Egg, Whole < 0.10 kU/L (Class 0); F338-IgE Oyster <0.10 kU/L (Class 0); F338-IgE Scallop <0.10 kU/L (Class 0); FX02-IgE Food Mix (Sea Foods) Negative (.)
[2022-09-27 23:07] LABS: D001-IgE D pteronyssinus <0.10 kU/L (Class 0); E001-IgE Cat Epith/Dander < 0.10 kU/L (Class 0); E005-IgE Dog Dander < 0.10 kU/L (Class 0); G002-IgE Bermuda Grass < 0.10 kU/L (Class 0); M001-IgE Penicillium chrysogen < 0.10 kU/L (Class 0); M002 IgE Cladosporium herbaru < 0.10 kU/L (Class 0); M003 IgE Aspergillus fumigatu < 0.10 kU/L (Class 0); M006-IgE Alternaria alternata < 0.10 kU/L (Class 0); T001-IgE Maple/Box Elder < 0.10 kU/L (Class 0); T003-IgE Common Silver Birch < 0.10 kU/L (Class 0); T006-IgE Cedar, Mountain < 0.10 kU/L (Class 0); T007-IgE Oak, White < 0.10 kU/L (Class 0); T008-IgE Elm, American < 0.10 kU/L (Class 0); T015-IgE Ash, White < 0.10 kU/L (Class 0); T070-IgE White Mulberry < 0.10 kU/L (Class 0); W001-IgE Ragweed, Short 0.17 kU/L (Class 0/I); W018-IgE Sheep Sorrel < 0.10 kU/L (Class 0)
== END ==
LOC: M WUC 10:27
PROVIDERS: ATTEND Allergy & Immunology
DX: J30.1 Allergic rhinitis due to pollen (principal); J32.0 Chronic maxillary sinusitis; R05.3 Chronic cough